=== PATIENT | male | born 1965 | race African-American/Black ===

== ENCOUNTER 2017-04-23 14:08 | Inpatient (IN) | payer OTHER ==
[2017-04-23] MEDS ORDERED: ASPIRIN 81 MG CHEW PO STA (14:21)
[2017-04-23] MEDS ORDERED: NITROGLYCERIN OINT 1 INCH/GM PACKET TOPICAL STA (14:21)
--- NOTE | 2017-04-23 14:35 | ED ---
General Adult HPI - General Chief complaint: Chest Pain Stated complaint: chest pain Time Seen by Provider: 04/23/17 14:15 Source: patient, EMS, RN notes reviewed Mode of arrival: ambulatory Limitations: no limitations - History of Present Illness Initial comments: This is a 51-year-old male with a past medical history significant for coronary artery disease and 2 stents. Patient was at [facility] for cocaine abuse. Patient states he started having chest pain is morning about 10:30 patient took 3 nitroglycerin and the pain went away per patient states later in the day he started having chest pain he got up to go to eat any passed out. Patient states that when EMS was called. Patient states he continues to have some chest pain. He is asked for pain medications. Patient denies any difficulty breathing first breath patient denies any diaphoresis. Patient denies any nausea patient patient denies any abdominal pain patient denies any vomiting or diarrhea recently. Patient denies any fever chills or cough. Patient denies headache patient denies numbness weakness. Patient denies lightheadedness dizziness or nursing about so. - Related Data Home Medications Medication Instructions Recorded Confirmed Acetaminophen Tab [Tylenol Tab] 650 mg PO Q4H PRN 04/23/17 04/23/17 Albuterol Sulfate [Ventolin Hfa] 2 puff INHALATION RT-QID PRN 04/23/17 04/23/17 Aspirin EC [Ecotrin Low Dose] 81 mg PO DAILY 04/23/17 04/23/17 Chlorpheniramine Maleate 4 mg PO Q4HR PRN 04/23/17 04/23/17 [Chlor-Trimeton] Ergocalciferol (Vitamin D2) 50,000 unit PO Q7D 04/23/17 04/23/17 [Vitamin D2] Gabapentin [Neurontin] 300 mg PO BID 04/23/17 04/23/17 Ibuprofen [Motrin] 600 mg PO Q6HR PRN 04/23/17 04/23/17 Isosorbide Mononitrate ER [Imdur] 30 mg PO DAILY 04/23/17 04/23/17 Lisinopril 40 mg PO DAILY 04/23/17 04/23/17 Metoprolol Tartrate [Lopressor] 50 mg PO BID 04/23/17 04/23/17 Multivitamins, Thera [Multivitamin 1 tab PO BID 04/23/17 04/23/17 (formulary)] NIFEdipine [NIFEdipine ER] 60 mg PO DAILY 04/23/17 04/23/17 Nitroglycerin Sl Tabs [Nitrostat] 0.4 mg SUBLINGUAL Q5M PRN 04/23/17 04/23/17 OXcarbazepine [Trileptal] 300 mg PO BID 04/23/17 04/23/17 QUEtiapine [SEROquel] 200 mg PO HS 04/23/17 04/23/17 QUEtiapine [SEROquel] 400 mg PO HS 04/23/17 04/23/17 Simvastatin [Zocor] 20 mg PO HS 04/23/17 04/23/17 Thiamine [Vitamin B-1] 100 mg PO DAILY 04/23/17 04/23/17 Trihexyphenidyl HCl 5 mg PO TID 04/23/17 04/23/17 busPIRone HCL 15 mg PO TID 04/23/17 04/23/17 traZODone HCL [TraZODone HCl] 50 - 150 mg PO HS 04/23/17 04/23/17 Allergies Allergy/AdvReac Type Severity Reaction Status Date / Time benztropine [From Cogentin] Allergy Unknown Verified 04/23/17 14:51 tomato Allergy Unknown Verified 04/23/17 14:51 ibuprofen [From Motrin] AdvReac Rash/Hives Verified 04/23/17 14:51 Review of Systems ROS Statement: Those systems with pertinent positive or pertinent negative responses have been documented in the HPI. ROS Other: All systems not noted in ROS Statement are negative. Past Medical History Past Medical History: Asthma, Hypertension, Myocardial Infarction ([place]) Additional Past Medical History / Comment(s): chronic back pain, cocaine use x 32 years (currently at [facility] for rehab.) History of Any Multi-Drug Resistant Organisms: None Reported Past Surgical History: Heart Catheterization With Stent Past Psychological History: No Psychological Hx Reported Smoking Status: Current every day smoker Past Alcohol Use History: None Reported Past Drug Use History: Cocaine - Past Family History Mother Family Medical History: Cancer, Diabetes Mellitus Additional Family Medical History / Comment(s): breast cancer, from cirrhosis of the liver Father Additional Family Medical History / Comment(s): from cirrhosis of the liver General Exam - General Exam Comments Initial Comments: GENERAL: Patient is well-developed and well-nourished. Patient is nontoxic and well- hydrated and is in no acute distress. ENT: Neck is soft and supple. No significant lymphadenopathy is noted. Oropharynx is clear. Moist mucous membranes. Neck has full range of motion without eliciting any pain. EYES: The sclera were anicteric and conjunctiva were pink and moist. Extraocular movements were intact and pupils were equal round and reactive to light. Eyelids were unremarkable. PULMONARY: Unlabored respirations. Good breath sounds bilaterally. No audible rales rhonchi or wheezing was noted. CARDIOVASCULAR: There is a regular rate and rhythm without any murmurs gallops or rubs. ABDOMEN: Soft and nontender with normal bowel sounds. No palpable organomegaly was noted. There is no palpable pulsatile mass. SKIN: Skin is clear with no lesions or rashes and otherwise unremarkable. NEUROLOGIC: Patient is alert and oriented x3. Cranial nerves II through XII are grossly intact. Motor and sensory are also intact. Normal speech, volume and content. Symmetrical smile. MUSCULOSKELETAL: Normal extremities with adequate strength and full range of motion. LYMPHATICS: No significant lymphadenopathy is noted PSYCHIATRIC: Normal psychiatric evaluation. Limitations: no limitations Course Vital Signs 04/23/17 04/23/17 04/23/17 14:14 14:26 15:40 Temperature 97.4 F L Pulse Rate 60 53 L Pulse Rate [ 54 L Applications Developer ] Respiratory 18 16 Rate Blood Pressure 111/69 115/76 O2 Sat by Pulse 98 95 Oximetry 04/23/17 04/23/17 16:49 18:02 Temperature 97.2 F L 97.0 F L Pulse Rate 51 L 58 L Pulse Rate [ Applications Developer ] Respiratory 18 18 Rate Blood Pressure 95/51 143/69 O2 Sat by Pulse 98 99 Oximetry Medical Decision Making - Medical Decision Making EKG shows sinus bradycardia 57 bpm NC interval is 200 QRS is 82 QT interval 420 QTC is 408 per patient's EKG shows no ST segment elevation or depression or T- wave abnormality is noted. Chest x-ray shows no acute abnormality. Dr. García admitted the patient. - Lab Data Result diagrams: 04/24/17 08:21 04/24/17 08:21 Lab Results 04/23/17 04/23/17 04/23/17 Range/Units 14:30 14:30 14:30 WBC 6.6 (3.8-10.6) k/uL RBC 4.84 (4.30-5.90) m/uL Hgb 14.8 (13.0-17.5) gm/dL Hct 44.0 (39.0-53.0) % MCV 90.9 (80.0-100.0) fL MCH 30.5 (25.0-35.0) pg MCHC 33.6 (31.0-37.0) g/dL RDW 14.2 (11.5-15.5) % Plt Count 227 (150-450) k/uL Neutrophils % 62 % Lymphocytes % 27 % Monocytes % 6 % Eosinophils % 3 % Basophils % 1 % Neutrophils # 4.1 (1.3-7.7) k/uL Lymphocytes # 1.8 (1.0-4.8) k/uL Monocytes # 0.4 (0-1.0) k/uL Eosinophils # 0.2 (0-0.7) k/uL Basophils # 0.0 (0-0.2) k/uL PT (9.0-12.0) sec INR (<1.1) APTT (22.0-30.0) sec Sodium 139 (137-145) mmol/L Potassium 5.4 H (3.5-5.1) mmol/L Chloride 104 (98-107) mmol/L Carbon Dioxide 27 (22-30) mmol/L Anion Gap 8 mmol/L BUN 16 (9-20) mg/dL Creatinine 0.80 (0.66-1.25) mg/dL Est GFR (MDRD) Af Amer >60 (>60 ml/min/1.73 sqM) Est GFR (MDRD) Non-Af >60 (>60 ml/min/1.73 sqM) Glucose 85 (74-99) mg/dL Calcium 9.7 (8.4-10.2) mg/dL Magnesium 2.0 (1.6-2.3) mg/dL Total Bilirubin 0.9 (0.2-1.3) mg/dL AST 33 (17-59) U/L ALT 26 (21-72) U/L Alkaline Phosphatase 58 (38-126) U/L Total Creatine Kinase 38 L (55-170) U/L CK-MB (CK-2) <0.2 (0.0-2.4) ng/mL CK-MB (CK-2) Rel Index Troponin I <0.012 (0.000-0.034) ng/mL Total Protein 6.7 (6.3-8.2) g/dL Albumin 3.9 (3.5-5.0) g/dL Triglycerides (<150) mg/dL Cholesterol (<200) mg/dL LDL Cholesterol, Calc (0-99) mg/dL HDL Cholesterol (40-60) mg/dL Urine Opiates Screen (NotDetected) Ur Oxycodone Screen (NotDetected) Urine Methadone Screen (NotDetected) Ur Propoxyphene Screen (NotDetected) Ur Barbiturates Screen (NotDetected) U Tricyclic Antidepress (NotDetected) Ur Phencyclidine Scrn (NotDetected) Ur Amphetamines Screen (NotDetected) U Methamphetamines Scrn (NotDetected) U Benzodiazepines Scrn (NotDetected) Urine Cocaine Screen (NotDetected) U Marijuana (THC) Screen (NotDetected) 04/23/17 04/23/17 04/23/17 Range/Units 14:30 17:51 20:15 WBC (3.8-10.6) k/uL RBC (4.30-5.90) m/uL Hgb (13.0-17.5) gm/dL Hct (39.0-53.0) % MCV (80.0-100.0) fL MCH (25.0-35.0) pg MCHC (31.0-37.0) g/dL RDW (11.5-15.5) % Plt Count (150-450) k/uL Neutrophils % % Lymphocytes % % Monocytes % % Eosinophils % % Basophils % % Neutrophils # (1.3-7.7) k/uL Lymphocytes # (1.0-4.8) k/uL Monocytes # (0-1.0) k/uL Eosinophils # (0-0.7) k/uL Basophils # (0-0.2) k/uL PT 11.8 (9.0-12.0) sec INR 1.2 (<1.1) APTT 25.3 (22.0-30.0) sec Sodium (137-145) mmol/L Potassium (3.5-5.1) mmol/L Chloride (98-107) mmol/L Carbon Dioxide (22-30) mmol/L Anion Gap mmol/L BUN (9-20) mg/dL Creatinine (0.66-1.25) mg/dL Est GFR (MDRD) Af Amer (>60 ml/min/1.73 sqM) Est GFR (MDRD) Non-Af (>60 ml/min/1.73 sqM) Glucose (74-99) mg/dL Calcium (8.4-10.2) mg/dL Magnesium (1.6-2.3) mg/dL Total Bilirubin (0.2-1.3) mg/dL AST (17-59) U/L ALT (21-72) U/L Alkaline Phosphatase (38-126) U/L Total Creatine Kinase (55-170) U/L CK-MB (CK-2) (0.0-2.4) ng/mL CK-MB (CK-2) Rel Index Troponin I <0.012 (0.000-0.034) ng/mL Total Protein (6.3-8.2) g/dL Albumin (3.5-5.0) g/dL Triglycerides (<150) mg/dL Cholesterol (<200) mg/dL LDL Cholesterol, Calc (0-99) mg/dL HDL Cholesterol (40-60) mg/dL Urine Opiates Screen Not Detected (NotDetected) Ur Oxycodone Screen Not Detected (NotDetected) Urine Methadone Screen Not Detected (NotDetected) Ur Propoxyphene Screen Not Detected (NotDetected) Ur Barbiturates Screen Not Detected (NotDetected) U Tricyclic Antidepress Detected H (NotDetected) Ur Phencyclidine Scrn Not Detected (NotDetected) Ur Amphetamines Screen Not Detected (NotDetected) U Methamphetamines Scrn Not Detected (NotDetected) U Benzodiazepines Scrn Not Detected (NotDetected) Urine Cocaine Screen Detected H (NotDetected) U Marijuana (THC) Screen Not Detected (NotDetected) 04/24/17 04/24/17 04/24/17 Range/Units 02:02 02:02 08:21 WBC 7.4 (3.8-10.6) k/uL RBC 4.77 (4.30-5.90) m/uL Hgb 14.2 (13.0-17.5) gm/dL Hct 43.8 (39.0-53.0) % MCV 91.8 (80.0-100.0) fL MCH 29.8 (25.0-35.0) pg MCHC 32.5 (31.0-37.0) g/dL RDW 14.0 (11.5-15.5) % Plt Count 210 (150-450) k/uL Neutrophils % 78 % Lymphocytes % 15 % Monocytes % 5 % Eosinophils % 1 % Basophils % 0 % Neutrophils # 5.8 (1.3-7.7) k/uL Lymphocytes # 1.1 (1.0-4.8) k/uL Monocytes # 0.3 (0-1.0) k/uL Eosinophils # 0.0 (0-0.7) k/uL Basophils # 0.0 (0-0.2) k/uL PT (9.0-12.0) sec INR (<1.1) APTT 34.3 H (22.0-30.0) sec Sodium (137-145) mmol/L Potassium (3.5-5.1) mmol/L Chloride (98-107) mmol/L Carbon Dioxide (22-30) mmol/L Anion Gap mmol/L BUN (9-20) mg/dL Creatinine (0.66-1.25) mg/dL Est GFR (MDRD) Af Amer (>60 ml/min/1.73 sqM) Est GFR (MDRD) Non-Af (>60 ml/min/1.73 sqM) Glucose (74-99) mg/dL Calcium (8.4-10.2) mg/dL Magnesium (1.6-2.3) mg/dL Total Bilirubin (0.2-1.3) mg/dL AST (17-59) U/L ALT (21-72) U/L Alkaline Phosphatase (38-126) U/L Total Creatine Kinase (55-170) U/L CK-MB (CK-2) (0.0-2.4) ng/mL CK-MB (CK-2) Rel Index Troponin I 0.018 (0.000-0.034) ng/mL Total Protein (6.3-8.2) g/dL Albumin (3.5-5.0) g/dL Triglycerides (<150) mg/dL Cholesterol (<200) mg/dL LDL Cholesterol, Calc (0-99) mg/dL HDL Cholesterol (40-60) mg/dL Urine Opiates Screen (NotDetected) Ur Oxycodone Screen (NotDetected) Urine Methadone Screen (NotDetected) Ur Propoxyphene Screen (NotDetected) Ur Barbiturates Screen (NotDetected) U Tricyclic Antidepress (NotDetected) Ur Phencyclidine Scrn (NotDetected) Ur Amphetamines Screen (NotDetected) U Methamphetamines Scrn (NotDetected) U Benzodiazepines Scrn (NotDetected) Urine Cocaine Screen (NotDetected) U Marijuana (THC) Screen (NotDetected) 04/24/17 04/24/17 Range/Units 08:21 08:21 WBC (3.8-10.6) k/uL RBC (4.30-5.90) m/uL Hgb (13.0-17.5) gm/dL Hct (39.0-53.0) % MCV (80.0-100.0) fL MCH (25.0-35.0) pg MCHC (31.0-37.0) g/dL RDW (11.5-15.5) % Plt Count (150-450) k/uL Neutrophils % % Lymphocytes % % Monocytes % % Eosinophils % % Basophils % % Neutrophils # (1.3-7.7) k/uL Lymphocytes # (1.0-4.8) k/uL Monocytes # (0-1.0) k/uL Eosinophils # (0-0.7) k/uL Basophils # (0-0.2) k/uL PT (9.0-12.0) sec INR (<1.1) APTT 55.6 H (22.0-30.0) sec Sodium 138 (137-145) mmol/L Potassium 4.7 (3.5-5.1) mmol/L Chloride 107 (98-107) mmol/L Carbon Dioxide 22 (22-30) mmol/L Anion Gap 9 mmol/L BUN 14 (9-20) mg/dL Creatinine 0.78 (0.66-1.25) mg/dL Est GFR (MDRD) Af Amer >60 (>60 ml/min/1.73 sqM) Est GFR (MDRD) Non-Af >60 (>60 ml/min/1.73 sqM) Glucose 117 H (74-99) mg/dL Calcium 9.5 (8.4-10.2) mg/dL Magnesium (1.6-2.3) mg/dL Total Bilirubin 0.9 (0.2-1.3) mg/dL AST 18 (17-59) U/L ALT 18 L (21-72) U/L Alkaline Phosphatase 55 (38-126) U/L Total Creatine Kinase (55-170) U/L CK-MB (CK-2) (0.0-2.4) ng/mL CK-MB (CK-2) Rel Index Troponin I (0.000-0.034) ng/mL Total Protein 6.4 (6.3-8.2) g/dL Albumin 3.6 (3.5-5.0) g/dL Triglycerides 37 (<150) mg/dL Cholesterol 153 (<200) mg/dL LDL Cholesterol, Calc 91 (0-99) mg/dL HDL Cholesterol 55 (40-60) mg/dL Urine Opiates Screen (NotDetected) Ur Oxycodone Screen (NotDetected) Urine Methadone Screen (NotDetected) Ur Propoxyphene Screen (NotDetected) Ur Barbiturates Screen (NotDetected) U Tricyclic Antidepress (NotDetected) Ur Phencyclidine Scrn (NotDetected) Ur Amphetamines Screen (NotDetected) U Methamphetamines Scrn (NotDetected) U Benzodiazepines Scrn (NotDetected) Urine Cocaine Screen (NotDetected) U Marijuana (THC) Screen (NotDetected) Disposition Clinical Impression: Unstable angina pectoris Disposition: ADMITTED IP TO THIS HOSP Condition: Fair Time of Disposition: 15:43
[2017-04-23 14:46] LABS: Basophils % (A) 1 %; CH 29.6; CHCM 32.7; Eosinophils # (A) 0.2 k/uL (0-0.7); Eosinophils % (A) 3 %; HDW 2.28; HGB 14.8 gm/dL (13.0-17.5); Luc # (Auto) 0.13; Luc % (Auto) 2; Lymphocytes # (A) 1.8 k/uL (1.0-4.8); Lymphocytes % (A) 27 %; MCH 30.5 pg (25.0-35.0); MCHC 33.6 g/dL (31.0-37.0); MCV 90.9 fL (80.0-100.0); Monocytes # (A) 0.4 k/uL (0-1.0); Monocytes % (A) 6 %; Neutrophils # (A) 4.1 k/uL (1.3-7.7); Neutrophils % (A) 62 %; RBC 4.84 m/uL (4.30-5.90); RDW 14.2 % (11.5-15.5); WBC 6.6 k/uL (3.8-10.6); WBC (Perox) 6.59
[2017-04-23 14:56] LABS: ALT 26 U/L (21-72); AST 33 U/L (17-59); Alkaline Phosphatase 58 U/L (38-126); Anion Gap 8 mmol/L; Blood Urea Nitrogen 16 mg/dL (9-20); Calcium 9.7 mg/dL (8.4-10.2); Carbon Dioxide 27 mmol/L (22-30); Chloride 104 mmol/L (98-107); Glucose 85 mg/dL (74-99); Non-African American GFR(MDRD) >60 (>60 ml/min/1.73 sqM); Sodium 139 mmol/L (137-145); Total Bilirubin 0.9 mg/dL (0.2-1.3); Total Protein 6.7 g/dL (6.3-8.2)
[2017-04-23 14:58] LABS: INR 1.2 (<1.1); Partial Thromboplastin Time 25.3 sec (22.0-30.0); Potassium 5.4 mmol/L (3.5-5.1); Prothrombin Time 11.8 sec (9.0-12.0)
[2017-04-23 15:12] LABS: Creatine Kinase 38 U/L (55-170)
[2017-04-23 15:23] LABS: Creatine Kinase MB <0.2 ng/mL (0.0-2.4); Troponin I <0.012 ng/mL (0.000-0.034)
--- NOTE | 2017-04-23 15:25 | XR ---
EXAMINATION TYPE: XR chest 2V DATE OF EXAM: 04/23/2017 COMPARISON: None HISTORY: 51-year-old male with chest pain TECHNIQUE: PA and lateral views FINDINGS: The cardiomediastinal silhouette, aorta, and pulmonary vasculature are within normal limits. Mild dif fuse interstitial prominence as a chronic appearance. Couple were obtained from metallic BBs are pres ent projecting at the mid upper chest and left axilla. No consolidation or pleural effusion. IMPRESSION: Chronic changes without acute cardiopulmonary process.
[2017-04-23] MEDS ORDERED: SODIUM CHLORIDE 0.9% 1,000 ML IV STA (15:55)
[2017-04-23] MEDS ORDERED: IBUPROFEN 600 MG TAB PO PRN (15:57)
[2017-04-23] MEDS ORDERED: diphenhydrAMINE 25 MG CAP PO PRN (15:57)
[2017-04-23] MEDS ORDERED: ALBUTEROL NEBULIZED 2.5 MG/3 ML INHALATION PRN (15:57)
[2017-04-23] MEDS ORDERED: ERGOCALCIFEROL 50,000 UNIT CAP PO SCH (16:00)
[2017-04-23] MEDS ORDERED: HEPARIN SODIUM,PORCINE 5,000 UNIT/ML 1 ML VIAL IV ONE (17:53)
[2017-04-23] MEDS ORDERED: NITROGLYCERIN OINT 1 INCH/GM PACKET TOPICAL SCH (18:00)
[2017-04-23] MEDS: HEPARIN SODIUM,PORCINE/D5W PMX 25,000 UNIT in DEXTROSE/WATER 1 500ML.BAG IV SCH ×2 (18:06→19:15)
--- NOTE | 2017-04-23 18:37 | P.HPIM ---
History of Present Illness H&P Date: 04/23/17 This is a 50-year-old gentleman with previous history of CAD and polysubstance use was admitted to [facility] a day prior to the day of admission was brought into the hospital with complaints of chest pain Patient states that he has chest pain midsternal location radiating to the back associated with deep breathing denies having any alleviating or exacerbating factors Initial EKG when compared to a previous EKG does show subtle changes in 2-[address] depressions Cardiac enzyme initially was negative Patient states that his pain is constant Patient was noted to have cocaine in his drug screen Smokes about a pack of cigarettes daily Denies having any recent illnesses Denies having headaches nausea vomiting abdominal pain diarrhea urinary urgency or frequency Patient was also reported to have a episode of syncope apparently lost consciousness for about a minute thereafter regain consciousness without any confusion It was witnessed by his roommate who did not stay there is any seizure-like activity according to the patient Review of Systems All systems: negative (Noted in HPI) Past Medical History Past Medical History: Asthma, Hypertension, Myocardial Infarction ([place]) Additional Past Medical History / Comment(s): chronic back pain, cocaine use x 32 years (currently at [place] [facility] for rehab.) History of Any Multi-Drug Resistant Organisms: None Reported Past Surgical History: Heart Catheterization With Stent Past Psychological History: No Psychological Hx Reported Smoking Status: Current every day smoker Past Alcohol Use History: None Reported Past Drug Use History: Cocaine Medications and Allergies Home Medications Medication Instructions Recorded Confirmed Type Acetaminophen Tab [Tylenol Tab] 650 mg PO Q4H PRN 04/23/17 04/23/17 History Albuterol Sulfate [Ventolin Hfa] 2 puff INHALATION RT-QID PRN 04/23/17 04/23/17 History Aspirin EC [Ecotrin Low Dose] 81 mg PO DAILY 04/23/17 04/23/17 History Chlorpheniramine Maleate 4 mg PO Q4HR PRN 04/23/17 04/23/17 History [Chlor-Trimeton] Ergocalciferol (Vitamin D2) 50,000 unit PO Q7D 04/23/17 04/23/17 History [Vitamin D2] Gabapentin [Neurontin] 300 mg PO BID 04/23/17 04/23/17 History Ibuprofen [Motrin] 600 mg PO Q6HR PRN 04/23/17 04/23/17 History Isosorbide Mononitrate ER [Imdur] 30 mg PO DAILY 04/23/17 04/23/17 History Lisinopril 40 mg PO DAILY 04/23/17 04/23/17 History Metoprolol Tartrate [Lopressor] 50 mg PO BID 04/23/17 04/23/17 History Multivitamins, Thera [Multivitamin 1 tab PO BID 04/23/17 04/23/17 History (formulary)] NIFEdipine [NIFEdipine ER] 60 mg PO DAILY 04/23/17 04/23/17 History Nitroglycerin Sl Tabs [Nitrostat] 0.4 mg SUBLINGUAL Q5M PRN 04/23/17 04/23/17 History OXcarbazepine [Trileptal] 300 mg PO BID 04/23/17 04/23/17 History QUEtiapine [SEROquel] 200 mg PO HS 04/23/17 04/23/17 History QUEtiapine [SEROquel] 400 mg PO HS 04/23/17 04/23/17 History Simvastatin [Zocor] 20 mg PO HS 04/23/17 04/23/17 History Thiamine [Vitamin B-1] 100 mg PO DAILY 04/23/17 04/23/17 History Trihexyphenidyl HCl 5 mg PO TID 04/23/17 04/23/17 History busPIRone HCL 15 mg PO TID 04/23/17 04/23/17 History traZODone HCL [TraZODone HCl] 50 - 150 mg PO HS 04/23/17 04/23/17 History Allergies Allergy/AdvReac Type Severity Reaction Status Date / Time benztropine [From Cogentin] Allergy Unknown Verified 04/23/17 14:51 tomato Allergy Unknown Verified 04/23/17 14:51 ibuprofen [From Motrin] AdvReac Rash/Hives Verified 04/23/17 14:51 Physical Exam Vitals: Vital Signs Temp Pulse Pulse Resp BP Pulse Ox 04/23/17 18:02 97.0 F L 58 L 18 143/69 99 04/23/17 16:49 97.2 F L 51 L 18 95/51 98 04/23/17 15:40 53 L 16 115/76 95 04/23/17 14:26 54 L 04/23/17 14:14 97.4 F L 60 18 111/69 98 Intake and Output 04/23/17 04/23/17 04/23/17 06:59 14:59 22:59 Other: Weight 100.698 kg Patient Weight 04/24/17 06:59 Weight 100.698 kg Physical exam Gen. appearance oriented 3 in no distress Neck is supple no JVD Lungs diminished breath sounds no significant wheezing or rhonchi appreciated Heart S1-S2 heard regular rate and rhythm no murmurs appreciated Abdomen is soft nontender no organomegaly bowel sounds are intact Neurologically cranial nerves II-12 grossly intact no focal motor or sensory deficits noted Skin no abnormalities appreciated Results CBC & Chem 7: 04/23/17 14:30 04/23/17 14:30 Labs: Abnormal Lab Results - Last 24 Hours (Table) 04/23/17 04/23/17 04/23/17 Range/Units 14:30 14:30 17:51 Potassium 5.4 H (3.5-5.1) mmol/L Total Creatine Kinase 38 L (55-170) U/L U Tricyclic Antidepress Detected H (NotDetected) Urine Cocaine Screen Detected H (NotDetected) Assessment and Plan Plan: #1 syncope likely vasovagal #2 atypical chest pain likely pleuritic in nature #3 history of CAD #4 polysubstance use #5 hypertension. #6 dyslipidemia #7 ongoing tobacco use Plan We'll start the patient on Solumedrol 40 mg IV twice a day for pleurisy We'll obtain echocardiogram will have cardiology evaluate the patient as well Breathing treatments to be initiated Serial enzymes Appears atypical however subtle EKG changes are noted patient has done cocaine recently hence we'll my the patient overnight
[2017-04-23 18:49] VITALS: BMI 32.8
[2017-04-23] MEDS ORDERED: HEPARIN SODIUM,PORCINE 5,000 UNIT/ML 1 ML VIAL IV PRN (19:14)
[2017-04-23] MEDS ORDERED: IPRATROPIUM-ALBUTEROL 3 ML NEB INHALATION SCH (20:00)
[2017-04-23] MEDS: GABAPENTIN 300 MG CAP PO SCH (20:19)
[2017-04-23] MEDS: busPIRone HCl 5 MG TAB PO SCH ×2 (20:19→21:26)
[2017-04-23] MEDS: SODIUM CHLORIDE 0.9% 1,000 ML IV SCH (20:20)
[2017-04-23] MEDS: methylPREDNISolone SOD SUCCI 40 MG/ML 1 ML VIAL IV SCH (20:20)
[2017-04-23] MEDS ORDERED: ACETAMINOPHEN TAB 325 MG TAB PO PRN (20:33)
[2017-04-23] MEDS ORDERED: QUEtiapine 200 MG TAB PO SCH (21:00)
[2017-04-23] MEDS ORDERED: traZODone HCL 50 MG TAB PO SCH (21:00)
[2017-04-23] MEDS ORDERED: QUEtiapine 400 MG TAB PO SCH (21:00)
[2017-04-23] MEDS ORDERED: IPRATROPIUM-ALBUTEROL 3 ML NEB INHALATION PRN (21:31)
[2017-04-23] MEDS: OXcarbazepine 300 MG TAB PO SCH (22:40)
[2017-04-23] MEDS: METOPROLOL TARTRATE 50 MG TAB PO SCH (22:40)
[2017-04-24 08:40] LABS: Basophils % (A) 0 %; CH 29.7; CHCM 32.5; Eosinophils % (A) 1 %; HCT 43.8 % (39.0-53.0); HDW 2.23; HGB 14.2 gm/dL (13.0-17.5); Luc # (Auto) 0.09; Luc % (Auto) 1; Lymphocytes # (A) 1.1 k/uL (1.0-4.8); Lymphocytes % (A) 15 %; MCH 29.8 pg (25.0-35.0); MCHC 32.5 g/dL (31.0-37.0); MCV 91.8 fL (80.0-100.0); Mean Platelet Volume 7.9; Monocytes # (A) 0.3 k/uL (0-1.0); Monocytes % (A) 5 %; Neutrophils # (A) 5.8 k/uL (1.3-7.7); Neutrophils % (A) 78 %; RBC 4.77 m/uL (4.30-5.90); WBC 7.4 k/uL (3.8-10.6); WBC (Perox) 7.03
[2017-04-24] MEDS ORDERED: NON-FORMULARY DRUG (Aspirin Ec 81 MG) PO SCH (09:00)
[2017-04-24] MEDS ORDERED: THIAMINE 100 MG/ML 2 ML VIAL IM STA (09:17)
[2017-04-24] MEDS ORDERED: LORazepam 2 MG/ML SYRINGE IV PRN ×5 (09:17→20:55)
[2017-04-24] MEDS ORDERED: QUEtiapine 25 MG TAB PO STA (09:18)
[2017-04-24 09:21] LABS: Anion Gap 9 mmol/L; Calcium 9.5 mg/dL (8.4-10.2); Carbon Dioxide 22 mmol/L (22-30); Chloride 107 mmol/L (98-107); Cholesterol 153 mg/dL (<200); Glucose 117 mg/dL (74-99); HDL Cholesterol 55 mg/dL (40-60); Non-African American GFR(MDRD) >60 (>60 ml/min/1.73 sqM); Sodium 138 mmol/L (137-145); Total Bilirubin 0.9 mg/dL (0.2-1.3); Total Protein 6.4 g/dL (6.3-8.2); Triglycerides 37 mg/dL (<150)
[2017-04-24 09:29] LABS: Blood Urea Nitrogen 14 mg/dL (9-20); Potassium 4.7 mmol/L (3.5-5.1)
[2017-04-24 09:30] LABS: ALT 18 U/L (21-72); AST 18 U/L (17-59); Alkaline Phosphatase 55 U/L (38-126)
[2017-04-24] MEDS: ATORVASTATIN 40 MG TAB PO SCH (10:01)
[2017-04-24] MEDS: ASPIRIN 325 MG TAB PO SCH (10:01)
[2017-04-24] MEDS ORDERED: NALOXONE 0.4 MG/ML 10 ML VIAL IVP PRN (10:40)
[2017-04-24] MEDS: OXcarbazepine 300 MG TAB PO SCH ×2 (10:40→21:27)
[2017-04-24] MEDS ORDERED: NALOXONE 0.4 MG/ML 1 ML VIAL IV PRN (10:41)
[2017-04-24] MEDS ORDERED: NALOXONE 0.4 MG/ML 1 ML VIAL ONE (10:42)
[2017-04-24 10:45] LABS: Glucose,Whole Blood 118 mg/dL (75-99)
[2017-04-24] MEDS: busPIRone HCl 5 MG TAB PO SCH ×3 (10:50→21:28)
[2017-04-24] MEDS: METOPROLOL TARTRATE 50 MG TAB PO SCH ×2 (10:51→21:26)
[2017-04-24] MEDS: LISINOPRIL 20 MG TAB PO SCH (10:51)
[2017-04-24] MEDS: methylPREDNISolone SOD SUCCI 40 MG/ML 1 ML VIAL IV SCH (10:51)
[2017-04-24] MEDS: GABAPENTIN 300 MG CAP PO SCH ×2 (10:51→21:26)
[2017-04-24] MEDS: ISOSORBIDE MONONITRATE ER 30 MG TAB.ER.24H PO SCH (10:51)
--- NOTE | 2017-04-24 11:18 | P.CNPUL ---
History of Present Illness Consult date: 04/24/17 Requesting physician: Roly García Reason for consult: other (Critical care management) Chief complaint: Chest pain History of present illness: This is a 51-year-old gentleman with a known history of chronic bronchial asthma , anxiety/depression, hypertension, coronary artery disease with previous stent placements 2, chronic and ongoing tobacco dependence, 30+ years of cocaine abuse. He was recently admitted to [facility] facility when he developed chest pain yesterday. He did utilize nitroglycerin and the pain subsided for a while and then recurred. He was transferred here for the same. Admitted to the observation unit. His EKG did not reveal any acute ST or T- wave abnormalities. His troponins are negative 2. Mikael within normal limits. Electrolytes, renal function within normal limits. His urine drug screen was positive for tricyclics and cocaine. The patient had denied any history of alcohol abuse however he was placed on the CIWA protocol. Initially his number was 8/9 however earlier today he was at 31 and we are consulted for the same. The patient was restless and hallucinating and walking in and out of other patient rooms and he was given 2 mg of Ativan IV push. Upon evaluation by Dr. Banda the patient is somewhat obtunded. Most likely secondary to the Ativan. His blood glucose was 118. We gave 0.4 mg of Narcan without any immediate response. He is maintaining good O2 saturations in the mid 90s on room air. He is hemodynamically stable. Chest x-ray revealed chronic changes in no acute cardiopulmonary process. Metallic BBs were noted in the mid upper chest and left axilla region. Review of Systems ROS unobtainable: due to mental status Past Medical History Past Medical History: Asthma, Hypertension, Myocardial Infarction ([place]) Additional Past Medical History / Comment(s): chronic back pain, cocaine use x 32 years (currently at [facility] for rehab.) Last Myocardial Infarction Date:: 2013 History of Any Multi-Drug Resistant Organisms: None Reported Past Surgical History: Heart Catheterization With Stent Past Anesthesia/Blood Transfusion Reactions: No Reported Reaction Date of Last Stent Placement:: 2009 Past Psychological History: No Psychological Hx Reported Smoking Status: Current every day smoker Past Alcohol Use History: None Reported Past Drug Use History: Cocaine - Past Family History Mother Family Medical History: Cancer, Diabetes Mellitus Additional Family Medical History / Comment(s): breast cancer, from cirrhosis of the liver Father Additional Family Medical History / Comment(s): from cirrhosis of the liver Medications and Allergies Home Medications Medication Instructions Recorded Confirmed Type Acetaminophen Tab [Tylenol Tab] 650 mg PO Q4H PRN 04/23/17 04/23/17 History Albuterol Sulfate [Ventolin Hfa] 2 puff INHALATION RT-QID PRN 04/23/17 04/23/17 History Aspirin EC [Ecotrin Low Dose] 81 mg PO DAILY 04/23/17 04/23/17 History Chlorpheniramine Maleate 4 mg PO Q4HR PRN 04/23/17 04/23/17 History [Chlor-Trimeton] Ergocalciferol (Vitamin D2) 50,000 unit PO Q7D 04/23/17 04/23/17 History [Vitamin D2] Gabapentin [Neurontin] 300 mg PO BID 04/23/17 04/23/17 History Ibuprofen [Motrin] 600 mg PO Q6HR PRN 04/23/17 04/23/17 History Isosorbide Mononitrate ER [Imdur] 30 mg PO DAILY 04/23/17 04/23/17 History Lisinopril 40 mg PO DAILY 04/23/17 04/23/17 History Metoprolol Tartrate [Lopressor] 50 mg PO BID 04/23/17 04/23/17 History Multivitamins, Thera [Multivitamin 1 tab PO BID 04/23/17 04/23/17 History (formulary)] NIFEdipine [NIFEdipine ER] 60 mg PO DAILY 04/23/17 04/23/17 History Nitroglycerin Sl Tabs [Nitrostat] 0.4 mg SUBLINGUAL Q5M PRN 04/23/17 04/23/17 History OXcarbazepine [Trileptal] 300 mg PO BID 04/23/17 04/23/17 History QUEtiapine [SEROquel] 200 mg PO HS 04/23/17 04/23/17 History QUEtiapine [SEROquel] 400 mg PO HS 04/23/17 04/23/17 History Simvastatin [Zocor] 20 mg PO HS 04/23/17 04/23/17 History Thiamine [Vitamin B-1] 100 mg PO DAILY 04/23/17 04/23/17 History Trihexyphenidyl HCl 5 mg PO TID 04/23/17 04/23/17 History busPIRone HCL 15 mg PO TID 04/23/17 04/23/17 History traZODone HCL [TraZODone HCl] 50 - 150 mg PO HS 04/23/17 04/23/17 History Allergies Allergy/AdvReac Type Severity Reaction Status Date / Time benztropine [From Cogentin] Allergy Unknown Verified 04/23/17 14:51 tomato Allergy Unknown Verified 04/23/17 14:51 ibuprofen [From Motrin] AdvReac Rash/Hives Verified 04/23/17 14:51 Physical Exam Vitals: Vital Signs Temp Pulse Pulse Pulse Resp BP BP 04/24/17 08:00 98.4 F 75 18 129/85 04/24/17 03:26 20 04/24/17 03:25 98.2 F 67 20 122/67 04/23/17 23:29 74 18 121/65 04/23/17 23:18 14 04/23/17 20:00 14 04/23/17 18:33 98.0 F 70 14 128/87 04/23/17 18:02 97.0 F L 58 L 18 143/69 04/23/17 16:49 97.2 F L 51 L 18 95/51 04/23/17 15:40 53 L 16 115/76 04/23/17 14:26 54 L 04/23/17 14:14 97.4 F L 60 18 111/69 Pulse Ox 04/24/17 08:00 95 04/24/17 03:26 04/24/17 03:25 96 04/23/17 23:29 94 L 04/23/17 23:18 04/23/17 20:00 04/23/17 18:33 100 04/23/17 18:02 99 04/23/17 16:49 98 04/23/17 15:40 95 04/23/17 14:26 04/23/17 14:14 98 Intake and Output 04/23/17 04/24/17 04/24/17 22:59 06:59 14:59 Intake Total 27.784 581.333 Balance 27.784 581.333 Intake: IV 280 Heparin Sodium,Porcine/ 140 D5w Pmx 25,000 unit In Dextrose/Water 1 500ml. bag @ 12 UNITS/KG/HR 24. 16 mls/hr IV .[id number] MICHELLE Rx#:[id number] Sodium Chloride 0.9% 1, 140 000 ml @ 20 mls/hr IV . Q24H MICHELLE Rx#:[id number] Intake, IV Titration 27.784 151.333 Amount Heparin Sodium,Porcine/ 27.784 151.333 D5w Pmx 25,000 unit In Dextrose/Water 1 500ml. bag @ 12 UNITS/KG/HR 24. 16 mls/hr IV .[id number] MICHELLE Rx#:[id number] Oral 150 Other: Voiding Method Toilet Toilet Toilet # Voids 3 1 Weight 101.1 kg GENERAL EXAM: Sedated. HEAD: Normocephalic. EYES: Sluggish reaction of pupils, equal size. NOSE: Clear with pink turbinates. THROAT: No erythema or exudates. NECK: No masses, no JVD. CHEST: No chest wall deformity. LUNGS: Equal air entry with no crackles, wheeze, rhonchi or dullness. CVS: S1 and S2 normal with no audible murmurs, regular rhythm. ABDOMEN: No hepatosplenomegaly, normal bowel sounds, no guarding or rigidity. Extremities: There is no significant peripheral edema. No clubbing, no cyanosis. Peripheral pulses are intact. Results - Laboratory Findings CBC and BMP: 04/24/17 08:21 04/24/17 08:21 PT/INR, D-dimer PT 11.8 sec (9.0-12.0) 04/23/17 14:30 INR 1.2 (<1.1) 04/23/17 14:30 Abnormal lab findings: Abnormal Labs 04/23/17 04/23/17 04/23/17 14:30 14:30 17:51 APTT Potassium 5.4 H Glucose POC Glucose (mg/dL) ALT Total Creatine Kinase 38 L U Tricyclic Antidepress Detected H Urine Cocaine Screen Detected H 04/24/17 04/24/17 04/24/17 02:02 08:21 08:21 APTT 34.3 H 55.6 H Potassium Glucose 117 H POC Glucose (mg/dL) ALT 18 L Total Creatine Kinase U Tricyclic Antidepress Urine Cocaine Screen 04/24/17 10:43 APTT Potassium Glucose POC Glucose (mg/dL) 118 H ALT Total Creatine Kinase U Tricyclic Antidepress Urine Cocaine Screen - Diagnostic Findings Chest x-ray: image reviewed Assessment and Plan Plan: Impression: #1 Altered mental status secondary to suspected withdrawal from cocaine and the requirement of IV sedation. #2 Cocaine abuse for greater than 30 years. Was recently admitted to [facility]. #3 Chest pain without evidence of acute coronary syndrome suspect secondary to cocaine use, in a patient with a known history of coronary artery disease and previous stent placements. #4 Chronic and ongoing tobacco dependence. #5 Chronic obstructive pulmonary disease. #6 Hypertension. #7 Depression history of. Plan: The patient was seen and evaluated by Dr. Banda. His chest x-ray and labs were reviewed. The patient is quite obtunded currently possibly secondary to 2 mg IV push Ativan. We will transfer the patient to the intensive care unit for closer monitoring. He is currently protecting his airway. He is maintaining good O2 saturations in the 90s on room air. Cautious use of sedation. Continue current medications. If he does not improve mentally we will obtain a computed tomography scan of the head. We'll continue to follow and make further recommendations based on his clinical status. Time with Patient: Greater than 30
[2017-04-24] MEDS ORDERED: HALOPERIDOL LACTATE 5 MG/ML 1 ML VIAL IM PRN (12:24)
[2017-04-24] MEDS: SODIUM CHLORIDE 0.9% 1,000 ML IV SCH ×2 (13:00→21:27)
[2017-04-24 13:35] LABS: Appearance,Urine Clear (Clear); Bilirubin,Urine Negative (Negative); Glucose,Urine (UA) Negative (Negative); Ketones,Urine Negative (Negative); Leukocyte Esterase,Urine Negative (Negative); Nitrite,Urine Negative (Negative); PH, Urine 5.5 (5.0-8.0); Protein,Urine Negative (Negative); Specific Gravity,Urine 1.013 (1.001-1.035); UA Billing (MACRO vs. MICRO) CHEM; Urobilinogen,Urine <2.0 mg/dL (<2.0)
--- NOTE | 2017-04-24 15:08 | P.PN ---
Subjective This is a 50-year-old gentleman with previous history of CAD and polysubstance use was admitted to [facility] a day prior to the day of admission was brought into the hospital with complaints of chest pain Patient states that he has chest pain midsternal location radiating to the back associated with deep breathing denies having any alleviating or exacerbating factors Initial EKG when compared to a previous EKG does show subtle changes in 2-[address] depressions Cardiac enzyme initially was negative Patient states that his pain is constant Patient was noted to have cocaine in his drug screen Smokes about a pack of cigarettes daily Denies having any recent illnesses Denies having headaches nausea vomiting abdominal pain diarrhea urinary urgency or frequency Patient was also reported to have a episode of syncope apparently lost consciousness for about a minute thereafter regain consciousness without any confusion It was witnessed by his roommate who did not stay there is any seizure-like activity according to the patient 04/24/17 pt was apparently was more confused was seen in the ICU does not respond to commands CIWA score of 32 was reported and hence was triaged to the ICU Objective - Vital Signs Vital signs: Vital Signs Temp 97.9 F 04/24/17 12:00 Pulse 74 04/24/17 14:00 Resp 13 04/24/17 14:00 BP 153/83 04/24/17 14:00 Pulse Ox 95 04/24/17 14:00 Intake & Output 04/23/17 04/24/17 04/24/17 18:59 06:59 18:59 Intake Total 609.117 60 Output Total 735 Balance 609.117 -675 Weight 100.698 kg 101.1 kg Intake: IV 280 Heparin Sodium,Porcine/ 140 D5w Pmx 25,000 unit In Dextrose/Water 1 500ml. bag @ 12 UNITS/KG/HR 24. 16 mls/hr IV .[id number] MICHELLE Rx#:[id number] Sodium Chloride 0.9% 1, 140 000 ml @ 20 mls/hr IV . Q24H MICHELLE Rx#:[id number] Intake, IV Titration 179.117 60 Amount Heparin Sodium,Porcine/ 179.117 D5w Pmx 25,000 unit In Dextrose/Water 1 500ml. bag @ 12 UNITS/KG/HR 24. 16 mls/hr IV .[id number] MICHELLE Rx#:[id number] Sodium Chloride 0.9% 1, 60 000 ml @ 20 mls/hr IV . Q24H MICHELLE Rx#:[id number] Oral 150 Output: Urine 735 Other: Voiding Method Toilet Indwelling Catheter # Voids 3 1 - Exam Physical exam lethargic Neck is supple no JVD Lungs good air entry clear to auscultation no rhonchi or wheezing Heart S1-S2 heard regular rate and rhythm no murmurs appreciated Abdomen is soft nontender no organomegaly bowel sounds are intact Neurologically deferred Skin no abnormalities appreciated - Labs CBC & Chem 7: 04/24/17 08:21 04/24/17 08:21 Labs: Abnormal Lab Results - Last 24 Hours (Table) 04/23/17 04/23/17 04/24/17 Range/Units 14:30 17:51 02:02 APTT 34.3 H (22.0-30.0) sec Glucose (74-99) mg/dL POC Glucose (mg/dL) (75-99) mg/dL ALT (21-72) U/L Total Creatine Kinase 38 L (55-170) U/L U Tricyclic Antidepress Detected H (NotDetected) Urine Cocaine Screen Detected H (NotDetected) 04/24/17 04/24/17 04/24/17 Range/Units 08:21 08:21 10:43 APTT 55.6 H (22.0-30.0) sec Glucose 117 H (74-99) mg/dL POC Glucose (mg/dL) 118 H (75-99) mg/dL ALT 18 L (21-72) U/L Total Creatine Kinase (55-170) U/L U Tricyclic Antidepress (NotDetected) Urine Cocaine Screen (NotDetected) Assessment and Plan Plan: #1 syncope likely vasovagal #2 atypical chest pain likely pleuritic in nature #3 history of CAD #4 polysubstance use #5 hypertension. #6 dyslipidemia #7 ongoing tobacco use #8 acute toxic encephalopathy Plan Patient is scheduled for a stress is Continue ICU monitoring We'll discontinue Seroquel that was recently started DC steroids Continue close monitoring if patient gets agitated will use Haldol IM 5 mg every 6 hours when necessary DVT prophylaxis
[2017-04-24] MEDS: HEPARIN SODIUM,PORCINE 5,000 UNIT/ML 1 ML VIAL SQ SCH (16:25)
[2017-04-24] MEDS ORDERED: THIAMINE 100 MG TAB PO SCH (17:00)
[2017-04-24] MEDS ORDERED: ZOLPIDEM 5 MG TAB PO SCH (21:00)
[2017-04-25] MEDS: HEPARIN SODIUM,PORCINE 5,000 UNIT/ML 1 ML VIAL SQ SCH ×3 (04:07→16:02)
[2017-04-25 05:59] LABS: Basophils % (A) 0 %; CH 29.1; CHCM 31.8; Eosinophils # (A) 0.1 k/uL (0-0.7); Eosinophils % (A) 1 %; HCT 45.5 % (39.0-53.0); HDW 2.23; HGB 14.9 gm/dL (13.0-17.5); Luc # (Auto) 0.17; Luc % (Auto) 2; Lymphocytes # (A) 1.7 k/uL (1.0-4.8); Lymphocytes % (A) 17 %; MCH 30.2 pg (25.0-35.0); MCHC 32.8 g/dL (31.0-37.0); MCV 91.9 fL (80.0-100.0); Mean Platelet Volume 7.9; Monocytes # (A) 0.6 k/uL (0-1.0); Monocytes % (A) 6 %; Neutrophils # (A) 7.4 k/uL (1.3-7.7); Neutrophils % (A) 73 %; RBC 4.95 m/uL (4.30-5.90); RDW 13.9 % (11.5-15.5); WBC 10.1 k/uL (3.8-10.6); WBC (Perox) 10.48
[2017-04-25] MEDS ORDERED: DOBUTamine DRIP for NUC MED 500 MG in DEXTROSE/WATER 1 250ML.BAG IV ONE (06:00)
[2017-04-25 06:09] LABS: Anion Gap 7 mmol/L; Blood Urea Nitrogen 15 mg/dL (9-20); Calcium 9.5 mg/dL (8.4-10.2); Carbon Dioxide 27 mmol/L (22-30); Chloride 106 mmol/L (98-107); Glucose 83 mg/dL (74-99); Non-African American GFR(MDRD) >60 (>60 ml/min/1.73 sqM); Potassium 4.5 mmol/L (3.5-5.1); Sodium 140 mmol/L (137-145)
[2017-04-25] MEDS: NICOTINE 21MG/24HR PATCH TRANSDERM SCH ×2 (07:16→09:00)
[2017-04-25 08:12] LABS: Glucose,Whole Blood 89 mg/dL (75-99)
[2017-04-25] MEDS: ASPIRIN 325 MG TAB PO SCH (08:59)
[2017-04-25] MEDS: LISINOPRIL 20 MG TAB PO SCH (08:59)
[2017-04-25] MEDS: ATORVASTATIN 40 MG TAB PO SCH (08:59)
[2017-04-25] MEDS: GABAPENTIN 300 MG CAP PO SCH ×2 (08:59→22:04)
[2017-04-25] MEDS: ISOSORBIDE MONONITRATE ER 30 MG TAB.ER.24H PO SCH (09:00)
[2017-04-25] MEDS: SODIUM CHLORIDE 0.9% 1,000 ML IV SCH (09:01)
[2017-04-25] MEDS: OXcarbazepine 300 MG TAB PO SCH ×2 (09:01→22:04)
[2017-04-25] MEDS: METOPROLOL TARTRATE 50 MG TAB PO SCH ×3 (09:01→23:21)
--- NOTE | 2017-04-25 10:20 | P.PN ---
Subjective This is a 51-year-old gentleman with a known history of chronic bronchial asthma , anxiety/depression, hypertension, coronary artery disease with previous stent placements 2, chronic and ongoing tobacco dependence, 30+ years of cocaine abuse. He was recently admitted to [facility] when he developed chest pain yesterday. He did utilize nitroglycerin and the pain subsided for a while and then recurred. He was transferred here for the same. Admitted to the observation unit. His EKG did not reveal any acute ST or T- wave abnormalities. His troponins are negative 2. Mikael within normal limits. Electrolytes, renal function within normal limits. His urine drug screen was positive for tricyclics and cocaine. The patient had denied any history of alcohol abuse however he was placed on the CIWA protocol. Initially his number was 8/9 however earlier today he was at 31 and we are consulted for the same. The patient was restless and hallucinating and walking in and out of other patient rooms and he was given 2 mg of Ativan IV push. Upon evaluation by Dr. Banda the patient is somewhat obtunded. Most likely secondary to the Ativan. His blood glucose was 118. We gave 0.4 mg of Narcan without any immediate response. He is maintaining good O2 saturations in the mid 90s on room air. He is hemodynamically stable. Chest x-ray revealed chronic changes in no acute cardiopulmonary process. Metallic BBs were noted in the mid upper chest and left axilla region. The patient is seen again today 04/25/2017 in follow-up in the intensive care unit. He was quite sedated and obtunded yesterday when Dr. Banda 90 S. patient in the observation unit secondary to Ativan. He did again get restless and agitated and required Haldol and repeated Ativan. The last dose was approximately 1 AM this morning. Today on evaluation he is still quite sedate but arousable and moving all fours. He responds to verbal stimulation. He has been maintaining good O2 saturations in the upper 90s on room air. He's been hemodynamically stable. Afebrile. No leukocytosis. Objective - Vital Signs Vital signs: Vital Signs Temp 97 F L 04/25/17 08:00 Pulse 63 04/25/17 08:00 Resp 10 L 04/25/17 08:00 BP 163/89 04/25/17 08:00 Pulse Ox 96 04/25/17 08:00 Intake & Output 04/24/17 04/25/17 04/25/17 18:59 06:59 18:59 Intake Total 510 975 75 Output Total 1480 616 100 Balance -970 359 -25 Weight 99.6 kg Intake: IV 900 75 Sodium Chloride 0.9% 1, 900 75 000 ml @ 75 mls/hr IV . [id number] MICHELLE Rx#:[id number] Intake, IV Titration 250 75 Amount Sodium Chloride 0.9% 1, 250 75 000 ml @ 75 mls/hr IV . [id number] MICHELLE Rx#:[id number] Oral 260 Output: Urine 1480 616 100 Other: Voiding Method Indwelling Catheter Indwelling Catheter # Voids 1 # Bowel Movements 1 - Exam GENERAL EXAM: Sedated, arousable comfortable in no apparent distress. HEAD: Normocephalic. EYES: Normal reaction of pupils, equal size. NOSE: Clear with pink turbinates. THROAT: No erythema or exudates. NECK: No masses, no JVD. CHEST: No chest wall deformity. LUNGS: Equal air entry with no crackles, wheeze, rhonchi or dullness. CVS: S1 and S2 normal with no audible murmurs, regular rhythm. ABDOMEN: No hepatosplenomegaly, normal bowel sounds, no guarding or rigidity. SPINE: No scoliosis or deformity SKIN: No rashes CENTRAL NERVOUS SYSTEM: No focal deficits, tone is normal in all 4 extremities. Extremities: There is no peripheral edema. No clubbing, no cyanosis. Peripheral pulses are intact. - Labs CBC & Chem 7: 04/25/17 05:15 04/25/17 05:15 Labs: Abnormal Lab Results - Last 24 Hours (Table) 04/24/17 Range/Units 10:43 POC Glucose (mg/dL) 118 H (75-99) mg/dL Microbiology - Last 24 Hours (Table) 04/24/17 11:40 Urine Culture - Preliminary Urine,Catheterized Assessment and Plan Plan: Impression: #1 Altered mental status secondary to suspected withdrawal from cocaine and the requirement of IV sedation. #2 Cocaine abuse for greater than 30 years. Was recently admitted to [facility]. #3 Chest pain without evidence of acute coronary syndrome suspect secondary to cocaine use, in a patient with a known history of coronary artery disease and previous stent placements. #4 Chronic and ongoing tobacco dependence. #5 Chronic obstructive pulmonary disease. #6 Hypertension. #7 Depression history of. Plan: The patient was seen and evaluated by Dr. Simms. We will hold all the sedation. The patient had been given Ambien last night as well. We will wait until he is fully awake and alert and see how he responds. He probably could be transferred out of the intensive care unit later today. We will continue to follow make further recommendations based on his clinical status.
--- NOTE | 2017-04-25 11:03 | ECHOF ---
Referral Reason:cp MEASUREMENTS -------- HEIGHT: 175.3 cm WEIGHT: 99.3 kg BP: 129/86 RVIDd: 2.6 cm (< 3.3) IVSd: 1.1 cm (0.6 - 1.1) LVIDd: 4.9 cm (3.9 - 5.3) LVPWd: 1.3 cm (0.6 - 1.1) IVSs: 1.3 cm LVIDs: 3.4 cm LVPWs: 1.7 cm LA Diam: 3.3 cm (2.7 - 3.8) LAESV Index (A-L): 20.52 ml/m Ao Diam: 3.3 cm (2.0 - 3.7) AV Cusp: 2.1 cm (1.5 - 2.6) MV EXCURSION: 13.341 mm (> 18.000) MV EF SLOPE: 77 mm/s (70 - 150) EPSS: 1.1 cm MV E Lauro: 0.80 m/s MV DecT: 258 ms MV A Lauro: 0.88 m/s MV E/A Ratio: 0.91 FINDINGS -------- Sinus rhythm. This was a technically adequate study. The left ventricular size is normal. There is mild concentric left ventricular hypertrophy. Overall left ventricular systolic function is normal with, an EF between 55 - 60 %. The right ventricle is normal in size and function. Normal LA size by volume 22+/-6 ml/m2. The right atrium is normal in size. The aortic valve is trileaflet and appears structurally normal. The mitral valve is normal. The tricuspid valve appears structurally normal. The pulmonic valve was not well visualized. The aortic root size is normal. Normal inferior vena cava with normal inspiratory collapse consistent with estimated right atrial pressure of 5 mmHg. There is no pericardial effusion. CONCLUSIONS -------- 1. Sinus rhythm. 2. The aortic root size is normal. 3. Normal inferior vena cava with normal inspiratory collapse consistent with estimated right atrial pressure of 5 mmHg. 4. There is no pericardial effusion. 5. This was a technically adequate study. 6. There is mild concentric left ventricular hypertrophy. 7. Overall left ventricular systolic function is normal with, an EF between 55 - 60 %. 8. Normal LA size by volume 22+/-6 ml/m2. 9. The aortic valve is trileaflet and appears structurally normal. 10. The mitral valve is normal. 11. The tricuspid valve appears structurally normal. 12. The pulmonic valve was not well visualized. [employer]: Yuli Nava RDCS
[2017-04-25] MEDS: busPIRone HCl 5 MG TAB PO SCH ×3 (11:16→22:01)
--- NOTE | 2017-04-25 14:49 | CONS ---
Mr. Marc is a 51-year-old male who [facility] to undergo evaluation fo chest discomfort. According to the patient he has been having chest discomfort, worse with deep breathing. He also said he had syncopal episode and he was out for 3 hours. He denies any substance abuse, although it appears that he was in [place] for polysubstance abuse. He has a history of coronary artery disease according to him status post stenting x2 done at [facility]. He also carries diagnosis of stroke. I do not have any record of that at this point. He has history of dyspnea on exertion. No clear PND and no orthopnea. No palpitations. He denies any history of heart failure and there was no documentation of any arrhythmia on admission. Full detail of his syncopal episode is not clear. Patient is sleepy while I was talking to him. According to the note there was no seizure- like activity. His drug screen was positive for cocaine. His coronary risk factor was remarkable for the history of smoking. He has a history of diabetes, hypertension. He is nondiabetic. His medications include Trazodone, Risperidone, thiamine, simvastatin, Seroquel , Trileptal, multivitamin, nifedipine 60 mg daily, metoprolol tartrate 50 mg twice a day, lisinopril 40 mg daily, isosorbide mononitrate 30 mg daily, gabapentin, aspirin, albuterol, and vitamin D. REVIEW OF SYSTEMS: RESPIRATORY SYSTEM: He has dyspnea on exertion. He has history of chronic tobacco use. GI SYSTEM: He denies any recent GI bleed. No peptic ulcer disease. SYSTEM: No dysuria or hematuria. NERVOUS SYSTEM: He had history of stroke. PHYSICAL EXAMINATION: He is a 51-year-old male, quite sleepy, answering questions. Blood pressure 122/60 with heart rate in the 60s. HEAD: Normocephalic. EYES: Scleral anicteric. NECK: Good upstroke. No bruit, no jugular venous distention. LUNGS: Clear to auscultation. HEART: Regular rate and rhythm. S1, S2. No S2, no S3, with systolic murmur heard at the base. ABDOMEN: Soft, nontender. Positive bowel sounds. No organomegaly. EXTREMITIES: Intact pulses. Lab data revealed a positive cocaine in the urine. Troponin less than 0.012, less than 0.012 and 0.018. BUN and creatinine of 16.8, potassium of 5.4, hemoglobin of 14.8. EKG revealed a sinus mechanism with normal axis and intervals with nonspecific ST segment changes in the inferior leads. Chest x- ray shows no acute changes. IMPRESSION: 1. Chest discomfort of unclear etiology in a patient who carries diagnosis of coronary artery disease, rule out angina pectoris. No evidence of acute coronary syndrome so far. 2. Syncope of unclear details. The history is quite limited. 3. History of coronary artery disease. 4. Polysubstance abuse with positive cocaine. 5. Hypertension. 6. Hyperlipidemia. 7. Chronic tobacco abuse. RECOMMENDATIONS: I will obtain echocardiogram with Doppler. Will also obtain a stress dobutamine echocardiogram to evaluate his coronary perfusion. I will try to obtain the report of the workup that was done previously in [facility]. Depending on his progress further recommendations will be made. Thank you for this consult. I will follow with you. AQUILES
--- NOTE | 2017-04-25 18:00 | P.PN ---
Subjective This is a 50-year-old gentleman with previous history of CAD and polysubstance use was admitted to [place] [facility] a day prior to the day of admission was brought into the hospital with complaints of chest pain Patient states that he has chest pain midsternal location radiating to the back associated with deep breathing denies having any alleviating or exacerbating factors Initial EKG when compared to a previous EKG does show subtle changes in 2-[address] depressions Cardiac enzyme initially was negative Patient states that his pain is constant Patient was noted to have cocaine in his drug screen Smokes about a pack of cigarettes daily Denies having any recent illnesses Denies having headaches nausea vomiting abdominal pain diarrhea urinary urgency or frequency Patient was also reported to have a episode of syncope apparently lost consciousness for about a minute thereafter regain consciousness without any confusion It was witnessed by his roommate who did not stay there is any seizure-like activity according to the patient 04/24/17 pt was apparently was more confused was seen in the ICU does not respond to commands CIWA score of 32 was reported and hence was triaged to the ICU 2016 Overnight patient received a dose of Ativan and Ambien Patient is drowsy however were appropriate to questions. Patient was able to wake up and answer some questions appropriately however falls asleep during our conversation Patient appears diaphoretic Echocardiogram today was reviewed No other overnight events are reported Objective - Vital Signs Vital signs: Vital Signs Temp 97 F L 04/25/17 16:00 Pulse 80 04/25/17 17:00 Resp 98 H 04/25/17 17:00 BP 130/90 04/25/17 17:00 Pulse Ox 98 04/25/17 17:00 Intake & Output 04/24/17 04/25/17 04/25/17 18:59 06:59 18:59 Intake Total 510 975 750 Output Total 1480 616 830 Balance -970 359 -80 Weight 99.6 kg Intake: IV 900 750 Sodium Chloride 0.9% 1, 900 750 000 ml @ 75 mls/hr IV . [id number] [facility]HEL[facility] Rx#:[id number] Intake, IV Titration 250 75 Amount Sodium Chloride 0.9% 1, 250 75 000 ml @ 75 mls/hr IV . [id number] MICHELLE Rx#:[id number] Oral 260 Output: Urine 1480 616 830 Other: Voiding Method Indwelling Catheter Indwelling Catheter Indwelling Catheter # Voids 1 # Bowel Movements 1 - Exam Physical exam lethargic is slightly arousable Neck supple no JVD Lungs good air entry clear to auscultation no rhonchi or wheezing Heart S1-S2 heard regular rate and rhythm no murmurs appreciated Abdomen is soft nontender no organomegaly bowel sounds are intact Neurologically moves all 4 extremities Skin no abnormalities appreciated - Labs CBC & Chem 7: 04/25/17 05:15 04/25/17 05:15 Labs: Microbiology - Last 24 Hours (Table) 04/24/17 11:40 Urine Culture - Final Urine,Catheterized Assessment and Plan Plan: #1 syncope likely vasovagal #2 atypical chest pain likely pleuritic in nature #3 history of CAD #4 polysubstance use #5 hypertension. #6 dyslipidemia #7 ongoing tobacco use #8 acute toxic encephalopathy Plan Echo was reviewed Toxic encephalopathy appears to be slowly improving Once patient is more arousable could likely be triaged out of the intensive care unit Patient's right atrial pressure was noted to be 5 Continue with IV fluids at this time
[2017-04-26] MEDS: HEPARIN SODIUM,PORCINE 5,000 UNIT/ML 1 ML VIAL SQ SCH ×4 (00:02→23:50)
[2017-04-26 04:59] LABS: Basophils # (A) 0.1 k/uL (0-0.2); Basophils % (A) 1 %; CH 29.7; CHCM 32.7; Eosinophils # (A) 0.3 k/uL (0-0.7); Eosinophils % (A) 4 %; HDW 2.21; HGB 14.1 gm/dL (13.0-17.5); Luc # (Auto) 0.16; Luc % (Auto) 2; Lymphocytes # (A) 1.8 k/uL (1.0-4.8); Lymphocytes % (A) 25 %; MCH 30.7 pg (25.0-35.0); MCHC 33.6 g/dL (31.0-37.0); MCV 91.2 fL (80.0-100.0); Mean Platelet Volume 7.7; Monocytes # (A) 0.4 k/uL (0-1.0); Monocytes % (A) 6 %; Neutrophils # (A) 4.5 k/uL (1.3-7.7); Neutrophils % (A) 62 %; RDW 14.2 % (11.5-15.5); WBC 7.2 k/uL (3.8-10.6); WBC (Perox) 7.07
[2017-04-26 05:11] LABS: ALT 22 U/L (21-72); AST 16 U/L (17-59); Alkaline Phosphatase 67 U/L (38-126); Anion Gap 7 mmol/L; Blood Urea Nitrogen 19 mg/dL (9-20); Calcium 9.1 mg/dL (8.4-10.2); Carbon Dioxide 25 mmol/L (22-30); Chloride 104 mmol/L (98-107); Glucose 113 mg/dL (74-99); Non-African American GFR(MDRD) >60 (>60 ml/min/1.73 sqM); Potassium 4.3 mmol/L (3.5-5.1); Sodium 136 mmol/L (137-145); Total Bilirubin 0.7 mg/dL (0.2-1.3)
--- NOTE | 2017-04-26 07:22 | PN ---
This gentleman has history of cocaine abuse was in [place], developed chest pain. His troponins are normal. He also had a syncopal spell after 3 sublingual nitroglycerins and so far seems kind of lethargic, but his sedation is being held. He is resting comfortably without symptoms. However, when I talked to him, he is able to wake up and respond to questions. Vital signs are stable. S1, S2 heard normally. Lungs are clear. Abdomen is soft, nontender. Lower extremities reveal diminished pulses, but palpable. No focal motor deficits. This patient does not have any evidence of acute myocardial injury. He probably has underlying sleep apnea syndrome and pulmonology is already follow the patient. I would recommend that we check a D-dimer to rule out any other causes for syncope such as pulmonary embolism. The patient is already on subcu heparin. We will continue current medications and no additional sedation. AQUILES
[2017-04-26] MEDS: SODIUM CHLORIDE 0.9% 1,000 ML IV SCH ×2 (08:28→17:28)
[2017-04-26] MEDS: LISINOPRIL 20 MG TAB PO SCH (08:29)
[2017-04-26] MEDS: NICOTINE 21MG/24HR PATCH TRANSDERM SCH (08:29)
[2017-04-26] MEDS: ASPIRIN 325 MG TAB PO SCH (08:29)
[2017-04-26] MEDS: GABAPENTIN 300 MG CAP PO SCH ×2 (08:29→21:36)
[2017-04-26] MEDS: ISOSORBIDE MONONITRATE ER 30 MG TAB.ER.24H PO SCH (08:29)
[2017-04-26] MEDS: ATORVASTATIN 40 MG TAB PO SCH (08:29)
[2017-04-26] MEDS: OXcarbazepine 300 MG TAB PO SCH ×2 (08:30→21:35)
[2017-04-26] MEDS: METOPROLOL TARTRATE 50 MG TAB PO SCH ×2 (08:30→21:36)
--- NOTE | 2017-04-26 11:48 | P.PN ---
Subjective This is a 51-year-old gentleman with a known history of chronic bronchial asthma , anxiety/depression, hypertension, coronary artery disease with previous stent placements 2, chronic and ongoing tobacco dependence, 30+ years of cocaine abuse. He was recently admitted to [facility] when he developed chest pain yesterday. He did utilize nitroglycerin and the pain subsided for a while and then recurred. He was transferred here for the same. Admitted to the observation unit. His EKG did not reveal any acute ST or T- wave abnormalities. His troponins are negative 2. Mikael within normal limits. Electrolytes, renal function within normal limits. His urine drug screen was positive for tricyclics and cocaine. The patient had denied any history of alcohol abuse however he was placed on the CIWA protocol. Initially his number was 8/9 however earlier today he was at 31 and we are consulted for the same. The patient was restless and hallucinating and walking in and out of other patient rooms and he was given 2 mg of Ativan IV push. Upon evaluation by Dr. Banda the patient is somewhat obtunded. Most likely secondary to the Ativan. His blood glucose was 118. We gave 0.4 mg of Narcan without any immediate response. He is maintaining good O2 saturations in the mid 90s on room air. He is hemodynamically stable. Chest x-ray revealed chronic changes in no acute cardiopulmonary process. Metallic BBs were noted in the mid upper chest and left axilla region. The patient is seen again today 04/25/2017 in follow-up in the intensive care unit. He was quite sedated and obtunded yesterday when Dr. Banda 90 S. patient in the observation unit secondary to Ativan. He did again get restless and agitated and required Haldol and repeated Ativan. The last dose was approximately 1 AM this morning. Today on evaluation he is still quite sedate but arousable and moving all fours. He responds to verbal stimulation. He has been maintaining good O2 saturations in the upper 90s on room air. He's been hemodynamically stable. Afebrile. No leukocytosis. The patient is seen again today 04/26/2017 in follow-up in the intensive care unit. He is much more awake and alert in no acute distress. He is cooperative. He denies any chest pain, palpitations lightheadedness or dizziness. He denies any worsening shortness of breath, cough or congestion. He continues to maintain good O2 saturations in the 90s on room air. His been hemodynamically stable. Afebrile. He is cleared for transfer out of the intensive care unit. Objective - Vital Signs Vital signs: Vital Signs Temp 97.8 F 04/26/17 11:43 Pulse 83 04/26/17 11:43 Resp 18 04/26/17 11:43 BP 135/73 04/26/17 11:43 Pulse Ox 93 L 04/26/17 11:43 Intake & Output 04/25/17 04/26/17 04/26/17 18:59 06:59 18:59 Intake Total 900 750 Output Total 1080 790 Balance -180 -40 Weight 102.9 kg Intake: IV 900 750 Sodium Chloride 0.9% 1, 900 750 000 ml @ 75 mls/hr IV . [id number] MICHELLE Rx#:[id number] Output: Urine 1080 790 Other: Voiding Method Indwelling Catheter Indwelling Catheter - Exam GENERAL EXAM: Alert. comfortable in no apparent distress. HEAD: Normocephalic. EYES: Normal reaction of pupils, equal size. NOSE: Clear with pink turbinates. THROAT: No erythema or exudates. NECK: No masses, no JVD. CHEST: No chest wall deformity. LUNGS: Equal air entry with no crackles, wheeze, rhonchi or dullness. CVS: S1 and S2 normal with no audible murmurs, regular rhythm. ABDOMEN: No hepatosplenomegaly, normal bowel sounds, no guarding or rigidity. SPINE: No scoliosis or deformity SKIN: No rashes CENTRAL NERVOUS SYSTEM: No focal deficits, tone is normal in all 4 extremities. Extremities: There is no peripheral edema. No clubbing, no cyanosis. Peripheral pulses are intact. - Labs CBC & Chem 7: 04/26/17 04:27 04/26/17 04:27 Labs: Abnormal Lab Results - Last 24 Hours (Table) 04/26/17 Range/Units 04:27 Sodium 136 L (137-145) mmol/L Glucose 113 H (74-99) mg/dL AST 16 L (17-59) U/L Total Protein 6.0 L (6.3-8.2) g/dL Microbiology - Last 24 Hours (Table) 04/24/17 11:40 Urine Culture - Final Urine,Catheterized Assessment and Plan Plan: Impression: #1 Altered mental status secondary to suspected withdrawal from cocaine and the requirement of IV sedation. #2 Cocaine abuse for greater than 30 years. Was recently admitted to [facility]. #3 Chest pain without evidence of acute coronary syndrome suspect secondary to cocaine use, in a patient with a known history of coronary artery disease and previous stent placements. #4 Chronic and ongoing tobacco dependence. #5 Chronic obstructive pulmonary disease. #6 Hypertension. #7 Depression history of. Plan: The patient was seen and evaluated by Dr. Simms. He is stable from the pulmonary and critical care standpoint. He'll be transferred out of the intensive care unit today. We will continue to follow make further recommendations based on his clinical status.
[2017-04-26] MEDS: busPIRone HCl 5 MG TAB PO SCH ×3 (11:49→21:35)
[2017-04-26] MEDS: TRIHEXYPHENIDYL 2 MG TAB PO SCH ×3 (12:56→21:36)
--- NOTE | 2017-04-26 16:18 | P.PN ---
Subjective This is a 50-year-old gentleman with previous history of CAD and polysubstance use was admitted to [place] [facility] a day prior to the day of admission was brought into the hospital with complaints of chest pain Patient states that he has chest pain midsternal location radiating to the back associated with deep breathing denies having any alleviating or exacerbating factors Initial EKG when compared to a previous EKG does show subtle changes in 2-[address]ressions Cardiac enzyme initially was negative Patient states that his pain is constant Patient was noted to have cocaine in his drug screen Smokes about a pack of cigarettes daily Denies having any recent illnesses Denies having headaches nausea vomiting abdominal pain diarrhea urinary urgency or frequency Patient was also reported to have a episode of syncope apparently lost consciousness for about a minute thereafter regain consciousness without any confusion It was witnessed by his roommate who did not stay there is any seizure-like activity according to the patient 04/24/17 pt was apparently was more confused was seen in the ICU does not respond to commands CIWA score of 32 was reported and hence was triaged to the ICU 2016 Overnight patient received a dose of Ativan and Ambien Patient is drowsy however were appropriate to questions. Patient was able to wake up and answer some questions appropriately however falls asleep during our conversation Patient appears diaphoretic Echocardiogram today was reviewed No other overnight events are reported 04/26/2017 Patient is arousable states to have chest pain again Appears to have diffuse movement No other complaints are reported Denies having diarrhea abdominal pain difficulty breathing Objective - Vital Signs Vital signs: Vital Signs Temp 97.9 F 04/26/17 15:00 Pulse 74 04/26/17 15:00 Resp 18 04/26/17 15:00 BP 121/75 04/26/17 15:00 Pulse Ox 96 04/26/17 15:00 Intake & Output 04/25/17 04/26/17 04/26/17 18:59 06:59 18:59 Intake Total 900 750 Output Total 1080 790 Balance -180 -40 Weight 102.9 kg Intake: IV 900 750 Sodium Chloride 0.9% 1, 900 750 000 ml @ 75 mls/hr IV . [id number] [facility] Rx#:[id number] Output: Urine 1080 790 Other: Voiding Method Indwelling Catheter Indwelling Catheter # Voids 1 - Exam Physical exam lethargic is slightly more arousable and answers questions appropriately Neck supple no JVD Lungs good air entry clear to auscultation no rhonchi or wheezing Heart S1-S2 heard regular rate and rhythm no murmurs appreciated Abdomen is soft nontender no organomegaly bowel sounds are intact Neurologically moves all 4 extremities Skin no abnormalities appreciated - Labs CBC & Chem 7: 04/26/17 04:27 04/26/17 04:27 Labs: Abnormal Lab Results - Last 24 Hours (Table) 04/26/17 Range/Units 04:27 Sodium 136 L (137-145) mmol/L Glucose 113 H (74-99) mg/dL AST 16 L (17-59) U/L Total Protein 6.0 L (6.3-8.2) g/dL Microbiology - Last 24 Hours (Table) 04/24/17 11:40 Urine Culture - Final Urine,Catheterized Assessment and Plan Plan: #1 syncope likely vasovagal #2 atypical chest pain likely pleuritic in nature #3 history of CAD #4 polysubstance use #5 hypertension. #6 dyslipidemia #7 ongoing tobacco use #8 acute toxic encephalopathy #9 dyskinesia Plan Echo was reviewed Toxic encephalopathy appears to be slowly improving We'll restart patient's antimuscarinic agent due to movement disorder Continue monitoring patient judicious use of narcotics
[2017-04-26] MEDS: NITROGLYCERIN SL TABS 0.4 MG TAB SUBLINGUAL PRN ×4 (18:15→18:43)
[2017-04-26] MEDS ORDERED: diphenhydrAMINE 50 MG/ML 1 ML VIAL IVP PRN (19:56)
[2017-04-26] MEDS: KETOROLAC 30 MG/ML 1 ML VIAL IVP PRN (20:09)
[2017-04-27] MEDS: SODIUM CHLORIDE 0.9% 1,000 ML IV SCH ×2 (07:15→17:11)
[2017-04-27 07:51] LABS: Basophils % (A) 1 %; CH 29.5; CHCM 33.2; Eosinophils # (A) 0.2 k/uL (0-0.7); Eosinophils % (A) 3 %; HCT 43.2 % (39.0-53.0); HDW 2.27; HGB 14.4 gm/dL (13.0-17.5); Luc # (Auto) 0.12; Luc % (Auto) 2; Lymphocytes # (A) 1.8 k/uL (1.0-4.8); Lymphocytes % (A) 29 %; MCH 29.9 pg (25.0-35.0); MCHC 33.5 g/dL (31.0-37.0); MCV 89.3 fL (80.0-100.0); Mean Platelet Volume 7.8; Monocytes # (A) 0.4 k/uL (0-1.0); Monocytes % (A) 7 %; Neutrophils # (A) 3.7 k/uL (1.3-7.7); Neutrophils % (A) 59 %; RBC 4.83 m/uL (4.30-5.90); RDW 13.8 % (11.5-15.5); WBC 6.2 k/uL (3.8-10.6); WBC (Perox) 5.87
[2017-04-27 08:10] LABS: ALT 22 U/L (21-72); AST 12 U/L (17-59); Alkaline Phosphatase 62 U/L (38-126); Anion Gap 7 mmol/L; Blood Urea Nitrogen 14 mg/dL (9-20); Calcium 9.4 mg/dL (8.4-10.2); Carbon Dioxide 26 mmol/L (22-30); Chloride 106 mmol/L (98-107); Creatine Kinase 29 U/L (55-170); Glucose 88 mg/dL (74-99); Non-African American GFR(MDRD) >60 (>60 ml/min/1.73 sqM); Potassium 4.3 mmol/L (3.5-5.1); Sodium 139 mmol/L (137-145); Total Bilirubin 0.7 mg/dL (0.2-1.3); Total Protein 6.3 g/dL (6.3-8.2)
[2017-04-27] MEDS: KETOROLAC 30 MG/ML 1 ML VIAL IVP PRN ×3 (09:18→21:14)
[2017-04-27] MEDS: HEPARIN SODIUM,PORCINE 5,000 UNIT/ML 1 ML VIAL SQ SCH ×3 (09:18→23:23)
[2017-04-27] MEDS: NICOTINE 21MG/24HR PATCH TRANSDERM SCH (09:21)
[2017-04-27] MEDS: ASPIRIN 81 MG CHEW PO SCH (09:25)
[2017-04-27] MEDS: ATORVASTATIN 40 MG TAB PO SCH (09:26)
[2017-04-27] MEDS: GABAPENTIN 300 MG CAP PO SCH ×2 (09:27→21:15)
[2017-04-27] MEDS: busPIRone HCl 5 MG TAB PO SCH ×3 (09:27→21:14)
[2017-04-27] MEDS: OXcarbazepine 300 MG TAB PO SCH ×2 (09:28→21:14)
[2017-04-27] MEDS: ISOSORBIDE MONONITRATE ER 30 MG TAB.ER.24H PO SCH (09:28)
[2017-04-27] MEDS: LISINOPRIL 20 MG TAB PO SCH (09:28)
[2017-04-27] MEDS: METOPROLOL TARTRATE 50 MG TAB PO SCH ×2 (09:28→21:15)
[2017-04-27] MEDS: TRIHEXYPHENIDYL 2 MG TAB PO SCH ×3 (09:29→21:15)
--- NOTE | 2017-04-27 10:31 | PN ---
This gentleman came in with an episode of chest pain, did not have any troponin elevation. Had an echocardiogram that revealed normal systolic function. He is resting comfortably. BP control is good. Vital signs are stable. There is no JVD. S1, S2 heard normally. Heart sounds are heard distantly. Lungs are clear. Abdomen and lower extremity exam unchanged. Plan is to increase activity and move him to telemetry and he can have a stress test as an outpatient. He does not have any chest pain to suggest angina. AQUILES
[2017-04-27] MEDS ORDERED: methylPREDNISolone SOD SUCCI 125 MG/2 ML VIAL IV STA (11:50)
--- NOTE | 2017-04-27 16:38 | P.PN ---
Subjective This is a 50-year-old gentleman with previous history of CAD and polysubstance use was admitted to [place] [facility] a day prior to the day of admission was brought into the hospital with complaints of chest pain Patient states that he has chest pain midsternal location radiating to the back associated with deep breathing denies having any alleviating or exacerbating factors Initial EKG when compared to a previous EKG does show subtle changes in 2-[address]ressions Cardiac enzyme initially was negative Patient states that his pain is constant Patient was noted to have cocaine in his drug screen Smokes about a pack of cigarettes daily Denies having any recent illnesses Denies having headaches nausea vomiting abdominal pain diarrhea urinary urgency or frequency Patient was also reported to have a episode of syncope apparently lost consciousness for about a minute thereafter regain consciousness without any confusion It was witnessed by his roommate who did not stay there is any seizure-like activity according to the patient 04/24/17 pt was apparently was more confused was seen in the ICU does not respond to commands CIWA score of 32 was reported and hence was triaged to the ICU 2016 Overnight patient received a dose of Ativan and Ambien Patient is drowsy however were appropriate to questions. Patient was able to wake up and answer some questions appropriately however falls asleep during our conversation Patient appears diaphoretic Echocardiogram today was reviewed No other overnight events are reported 04/26/2017 Patient is arousable states to have chest pain again Appears to have diffuse movement No other complaints are reported Denies having diarrhea abdominal pain difficulty breathing 04/27/2017 Patient is arousable does stand up. Does complain of chest pain which is worse and on deep breathing States that he has some lightheadedness with walking Orthostatics are negative No diarrhea abdominal pain headaches blurry vision are reported Objective - Vital Signs Vital signs: Vital Signs Temp 98.3 F 04/27/17 07:00 Pulse 72 04/27/17 16:00 Resp 16 04/27/17 16:00 BP 147/86 04/27/17 11:58 Pulse Ox 97 04/27/17 07:00 Intake & Output 04/26/17 04/27/17 04/27/17 18:59 06:59 18:59 Intake Total 118 480 Output Total 325 1600 950 Balance -325 -6859 -470 Weight 102.9 kg 102.9 kg Intake: Oral 118 480 Output: Urine 325 1600 950 Other: Voiding Method Toilet Toilet Toilet Urinal Urinal # Voids 1 2 2 # Bowel Movements 1 - Exam Physical exam lethargic is slightly more arousable and answers questions appropriately Neck supple no JVD Lungs good air entry clear to auscultation no rhonchi or wheezing Heart S1-S2 heard regular rate and rhythm no murmurs appreciated Abdomen is soft nontender no organomegaly bowel sounds are intact Neurologically moves all 4 extremities Skin no abnormalities appreciated - Labs CBC & Chem 7: 04/27/17 07:26 04/27/17 07:26 Labs: Abnormal Lab Results - Last 24 Hours (Table) 04/27/17 Range/Units 07:26 AST 12 L (17-59) U/L Creatine Kinase 29 L (55-170) U/L Assessment and Plan Plan: #1 syncope likely vasovagal #2 atypical chest pain likely pleuritic in nature #3 history of CAD #4 polysubstance use #5 hypertension. #6 dyslipidemia #7 ongoing tobacco use #8 acute toxic encephalopathy #9 dyskinesia Plan Patient is improved Increase IV fluids Orthostatics are negative We'll give the patient a bolus of steroids 150mg of Solu-Medrol Increase IV fluids to 1 50 mL per hour Can likely be discharged back to [place] in the a.m.
[2017-04-27] MEDS ORDERED: QUEtiapine 200 MG TAB PO SCH (22:00)
--- NOTE | 2017-04-27 22:35 | PN ---
Mr. Marc is a 51-year-old male who was transferred from [place] for evaluation of chest pain and dizziness. He was in the ICU because of change in mental status. He appears to be more awake and alert at this point. He has a history of polysubstance abuse. He had some episodes of chest discomfort that has been continuous on and off, at times stabbing-like. The discomfort is worse when he takes a deep breath or with pressure on the chest. He underwent cardiac catheterization in 2010 in [facility], and at that time there was no evidence of progression of disease. He had a prior stent at the obtuse marginal branch that was patent. His medications at this time include: 1. Aspirin. 2. Lipitor 40 mg daily. 3. Isosorbide mononitrate 30 mg daily. 4. Lisinopril 40 mg daily. 5. Metoprolol tartrate 50 mg twice a day. 6. Nifedipine 60 mg daily. PHYSICAL EXAMINATION: Blood pressure 127/80 with a heart rate in the 60s and 70s. LUNGS: Clear. HEART: Regular rate and rhythm. S1, S2. No S3. No rub. Chest wall tenderness. LAB DATA: BUN and creatinine of 40 and 0.7. Hemoglobin 14.4. Potassium 4.3. IMPRESSION: 1. Polysubstance abuse. 2. History of coronary artery disease, stable by cardiac catheterization in 2010. 3. Chest pain, atypical for ischemic heart disease. 4. History of hypertension. 5. Hyperlipidemia. RECOMMENDATIONS: From the cardiac standpoint, I would not recommend any further cardiac workup at this time. Patient can follow up with his primary press and blow machine tender down the road to be further evaluated. Of note that his left ventricular systolic function showed a preserved ventricular size and systolic function. [facility]
[2017-04-28] MEDS: SODIUM CHLORIDE 0.9% 1,000 ML IV SCH ×2 (06:06→07:15)
[2017-04-28] MEDS: HEPARIN SODIUM,PORCINE 5,000 UNIT/ML 1 ML VIAL SQ SCH (08:11)
[2017-04-28] MEDS: GABAPENTIN 300 MG CAP PO SCH (08:12)
[2017-04-28] MEDS: NICOTINE 21MG/24HR PATCH TRANSDERM SCH (08:12)
[2017-04-28] MEDS: busPIRone HCl 5 MG TAB PO SCH (08:12)
[2017-04-28] MEDS: TRIHEXYPHENIDYL 2 MG TAB PO SCH (08:13)
[2017-04-28] MEDS: ASPIRIN 81 MG CHEW PO SCH (08:14)
[2017-04-28] MEDS: ATORVASTATIN 40 MG TAB PO SCH (08:14)
[2017-04-28] MEDS: OXcarbazepine 300 MG TAB PO SCH (08:14)
[2017-04-28] MEDS: METOPROLOL TARTRATE 50 MG TAB PO SCH (08:14)
[2017-04-28] MEDS: ISOSORBIDE MONONITRATE ER 30 MG TAB.ER.24H PO SCH (08:14)
[2017-04-28 08:15] VITALS: RESP 16; TEMP 97.4
[2017-04-28] MEDS: LISINOPRIL 20 MG TAB PO SCH (08:15)
--- NOTE | 2017-04-28 11:47 | CDI ---
In responding to this query, please exercise your independent professional judgment. The [facility] Coding Staff and Clinical Documentation Specialists appreciate your assistance in clarifying documentation, maintaining compliance with coding guidelines, accurately documenting patients condition and capturing severity of illness. The fact that a question is asked does not imply that any particular answer is desired or expected. Communication forms are a method of clarifying documentation and are not made part of the Legal Health Record. Thank you in advance for your clarification. Last Revision, December 2015 Mikala Lyn [address] [place] [address] Documentation Clarification Form Date: 04/28/2017 11:29:00 AM From: Erika Magdaleno CCS, CCDS Admit Date: 04/24/2017 9:18:00 AM Patient Name: Uzair Marc Visit Number: [id number] Discharge Date: Dr. Royl García: Per the Pulmonary/Critical Care consultation: "Altered mental status secondary to suspected withdrawal from cocaine and the requirement of IV sedation. Cocaine abuse for greater than 30 years. Was recently admitted to [facility]." Patient had aggressive behavior in ICU: climbing over bed rails, threatened to leave AMA, yelling at staff, pulling at IDC & heart monitor leads. Patient history/risk factors: Long history of cocaine abuse, CAD, Hypertension , MD, current smoker. Clinical Indicators: Arrived via EMS from rehab facility with chest pain, relieved w/Nitro, possible syncopal event, requesting pain medications. Labs: Drug screen positive for Antidepressants & Cocaine. Vital Signs: T 97.4*, P 60-53*, R 18, BP 111/69-95/51, PO 98 ra Treatment: Fall precautions, Seizure precautions, Pulmonary/Critical Care consult, Cardiology consult. Nitropaste, IV fluid rate 50, Albuterol Neb INH, IV Ativan, Haldol, IV Heparin, Nitro sl, Seroquel, Neurontin, IV Solumedrol. Admitted to ICU. In order to capture the severity of condition, if possible and in your professional opinion, please clarify the following diagnosis and reason for admission and document if the condition was present on admission: Chest pain o Describe cause if known. Substance withdrawal o Due to specific drug or drugs Other: please describe: Undetermined Type of Substance Disorder: Abuse Dependence Use Unknown Please document in your progress notes and discharge summary in order to capture severity of illness and risk of mortality. Include clinical findings that support your diagnosis. FYI: Press F11 to launch patient chart Place X here if this finding has no clinical significance, is not applicable or if you are not able to provide any additional documentation. Thank You. AQUILES
[2017-04-28 15:39] VITALS: BP 116/67; PULSE 69
--- NOTE | 2017-04-28 16:22 | P.DS ---
Providers Date of admission: 04/24/17 09:18 Attending physician: Roly García MD Consults: 04/23/17 16:04 Consult Physician Urgent Consulting Provider: Christopher Carbajal Consult Reason/Comments: chest pain Do you want consulting provider notified?: Yes 04/24/17 10:22 Consult Physician Stat Consulting Provider: Lynn Banda Consult Reason/Comments: ICU management Do you want consulting provider notified?: Yes Primary care physician: Physician Nonstaff Hospital Course: This is a 50-year-old gentleman with previous history of CAD and polysubstance use was admitted to [facility] a day prior to the day of admission was brought into the hospital with complaints of chest pain Patient states that he has chest pain midsternal location radiating to the back associated with deep breathing denies having any alleviating or exacerbating factors Initial EKG when compared to a previous EKG does show subtle changes in 2-[address] depressions Cardiac enzyme initially was negative Patient states that his pain is constant Patient was noted to have cocaine in his drug screen Smokes about a pack of cigarettes daily Denies having any recent illnesses Denies having headaches nausea vomiting abdominal pain diarrhea urinary urgency or frequency Patient was also reported to have a episode of syncope apparently lost consciousness for about a minute thereafter regain consciousness without any confusion It was witnessed by his roommate who did not stay there is any seizure-like activity according to the patient 04/24/17 pt was apparently was more confused was seen in the ICU does not respond to commands CIWA score of 32 was reported and hence was triaged to the ICU 2016 Overnight patient received a dose of Ativan and Ambien Patient is drowsy however were appropriate to questions. Patient was able to wake up and answer some questions appropriately however falls asleep during our conversation Patient appears diaphoretic Echocardiogram today was reviewed No other overnight events are reported 04/26/2017 Patient is arousable states to have chest pain again Appears to have diffuse movement No other complaints are reported Denies having diarrhea abdominal pain difficulty breathing 04/27/2017 Patient is arousable does stand up. Does complain of chest pain which is worse and on deep breathing States that he has some lightheadedness with walking Orthostatics are negative No diarrhea abdominal pain headaches blurry vision are reported - Exam Physical exam lethargic is slightly more arousable and answers questions appropriately Neck supple no JVD Lungs good air entry clear to auscultation no rhonchi or wheezing Heart S1-S2 heard regular rate and rhythm no murmurs appreciated Abdomen is soft nontender no organomegaly bowel sounds are intact Neurologically moves all 4 extremities Skin no abnormalities appreciated Plan: #1 syncope likely vasovagal #2 atypical chest pain likely pleuritic in nature #3 history of CAD #4 polysubstance use #5 hypertension. #6 dyslipidemia #7 ongoing tobacco use #8 acute toxic encephalopathy #9 dyskinesia steroids to continue to for the next 4 days Patient will need outpatient follow-up by his previous records management specialist Echocardiogram did not reveal all motion of the malleus Patient continues to have pleuritic chest pain Please discharged to substance abuse rehab facility Patient Condition at Discharge: Fair Plan - Discharge Summary New Discharge Prescriptions: New predniSONE 50 mg PO DAILY #5 tab Continue traZODone HCL 50 - 150 mg PO HS Nitroglycerin Sl Tabs [Nitrostat] 0.4 mg SUBLINGUAL Q5M PRN PRN Reason: Chest Pain Ibuprofen [Motrin] 600 mg PO Q6HR PRN PRN Reason: Pain Albuterol Sulfate [Ventolin HFA] 2 puff INHALATION RT-QID PRN PRN Reason: Shortness Of Breath Ergocalciferol (Vitamin D2) [Vitamin D2] 50,000 unit PO Q7D Acetaminophen Tab [Tylenol] 650 mg PO Q4H PRN PRN Reason: Pain Simvastatin [Zocor] 20 mg PO HS busPIRone HCL 15 mg PO TID QUEtiapine [SEROquel] 400 mg PO HS Trihexyphenidyl HCl 5 mg PO TID Metoprolol Tartrate [Lopressor] 50 mg PO BID Lisinopril 40 mg PO DAILY OXcarbazepine [Trileptal] 300 mg PO BID Gabapentin [Neurontin] 300 mg PO BID Aspirin EC [Ecotrin Low Dose] 81 mg PO DAILY Thiamine [Vitamin B-1] 100 mg PO DAILY NIFEdipine [NIFEdipine ER] 60 mg PO DAILY Multivitamins, Thera [Multivitamin (formulary)] 1 tab PO BID Isosorbide Mononitrate ER [Imdur] 30 mg PO DAILY Discontinued Chlorpheniramine Maleate [Chlor-Trimeton] 4 mg PO Q4HR PRN PRN Reason: Anxiety QUEtiapine [SEROquel] 200 mg PO HS Discharge Medication List Acetaminophen Tab [Tylenol] 650 mg PO Q4H PRN 04/23/17 [History] Albuterol Sulfate [Ventolin HFA] 2 puff INHALATION RT-QID PRN 04/23/17 [History] Aspirin EC [Ecotrin Low Dose] 81 mg PO DAILY 04/23/17 [History] Ergocalciferol (Vitamin D2) [Vitamin D2] 50,000 unit PO Q7D 04/23/17 [History] Gabapentin [Neurontin] 300 mg PO BID 04/23/17 [History] Ibuprofen [Motrin] 600 mg PO Q6HR PRN 04/23/17 [History] Isosorbide Mononitrate ER [Imdur] 30 mg PO DAILY 04/23/17 [History] Lisinopril 40 mg PO DAILY 04/23/17 [History] Metoprolol Tartrate [Lopressor] 50 mg PO BID 04/23/17 [History] Multivitamins, Thera [Multivitamin (formulary)] 1 tab PO BID 04/23/17 [History] NIFEdipine [NIFEdipine ER] 60 mg PO DAILY 04/23/17 [History] Nitroglycerin Sl Tabs [Nitrostat] 0.4 mg SUBLINGUAL Q5M PRN 04/23/17 [History] OXcarbazepine [Trileptal] 300 mg PO BID 04/23/17 [History] QUEtiapine [SEROquel] 400 mg PO HS 04/23/17 [History] Simvastatin [Zocor] 20 mg PO HS 04/23/17 [History] Thiamine [Vitamin B-1] 100 mg PO DAILY 04/23/17 [History] Trihexyphenidyl HCl 5 mg PO TID 04/23/17 [History] busPIRone HCL 15 mg PO TID 04/23/17 [History] traZODone HCL 50 - 150 mg PO HS 04/23/17 [History] predniSONE 50 mg PO DAILY #5 tab 04/28/17 [Rx] Follow up Appointment(s)/Referral(s): Nonstaff,Physician [Primary Care Provider] - 1-2 days Discharge Disposition: TRANSFER TO PSYCH HOSP/UNIT
== END 2017-04-28 17:30 | DRG 312 ==
LOC: EC 14:08 → 3OBS 17:54 → OBSVTOIN 04-24 09:18 → 6ICU 04-24 11:03 → 5MS5E 04-26 11:14
PROVIDERS: ADMIT Internal Medicine; ATTEND Internal Medicine
PROC: HZ2ZZZZ Detoxification Services for Substance Abuse Treatment (ICD-10-PCS; principal; 2017-04-24)
DX: R55 Syncope and collapse (principal); G92 Toxic encephalopathy; F14.23 Cocaine dependence with withdrawal; R09.1 Pleurisy; I10 Essential (primary) hypertension; F32.9 Major depressive disorder, single episode, unspecified; J44.9 Chronic obstructive pulmonary disease, unspecified; E78.5 Hyperlipidemia, unspecified; R94.31 Abnormal electrocardiogram [ECG] [EKG]; G89.29 Other chronic pain; M54.9 Dorsalgia, unspecified; I25.2 Old myocardial infarction; G47.30 Sleep apnea, unspecified; G24.9 Dystonia, unspecified; I25.10 Atherosclerotic heart disease of native coronary artery without angina pectoris; R00.1 Bradycardia, unspecified; F41.9 Anxiety disorder, unspecified; F19.10 Other psychoactive substance abuse, uncomplicated; R01.1 Cardiac murmur, unspecified; F17.210 Nicotine dependence, cigarettes, uncomplicated; Z83.3 Family history of diabetes mellitus; Z80.3 Family history of malignant neoplasm of breast; Z79.899 Other long term (current) drug therapy; Z95.5 Presence of coronary angioplasty implant and graft; Z88.6 Allergy status to analgesic agent; Z88.8 Allergy status to other drugs, medicaments and biological substances; Z91.018 Allergy to other foods; Z83.79 Family history of other diseases of the digestive system; Z79.82 Long term (current) use of aspirin; Z79.1 Long term (current) use of non-steroidal anti-inflammatories (NSAID)
CPT/HCPCS: 36415; 71020; 80048; 80053; 80061; 80306; 81003; 82550; 82553; 83735; 84484; 85025; 85379; 85610; 85730; 87086; 93005; 93306; 96374; 99285

== ENCOUNTER 2017-04-29 19:56 | Emergency (ER) | payer OTHER ==
[2017-04-29 20:08] VITALS: RESP 18
[2017-04-29] MEDS ORDERED: KETOROLAC 30 MG/ML 1 ML VIAL IVP STA (20:45)
[2017-04-29 21:00] LABS: Basophils # (A) 0.1 k/uL (0-0.2); Basophils % (A) 1 %; CH 29.2; CHCM 32.4; Eosinophils # (A) 0.2 k/uL (0-0.7); Eosinophils % (A) 2 %; HCT 40.6 % (39.0-53.0); HDW 2.25; HGB 13.6 gm/dL (13.0-17.5); Luc # (Auto) 0.16; Luc % (Auto) 1; Lymphocytes # (A) 2.5 k/uL (1.0-4.8); Lymphocytes % (A) 22 %; MCH 30.3 pg (25.0-35.0); MCHC 33.6 g/dL (31.0-37.0); MCV 90.3 fL (80.0-100.0); Mean Platelet Volume 8.7; Monocytes # (A) 0.8 k/uL (0-1.0); Monocytes % (A) 7 %; Neutrophils # (A) 7.6 k/uL (1.3-7.7); Neutrophils % (A) 67 %; WBC 11.3 k/uL (3.8-10.6); WBC (Perox) 10.99
--- NOTE | 2017-04-29 21:03 | ED ---
Chest Pain HPI - General Chief Complaint: Chest Pain Stated Complaint: Chest Pain Time Seen by Provider: 04/29/17 20:14 Source: patient Mode of arrival: EMS Limitations: no limitations - History of Present Illness Initial Comments: Patient is a 51-year-old male, discharged from this facility yesterday to a drug rehabilitation center, who presents today with a chief complaint of chest pain. Patient states that his chest pain is pressure in nature, is substernal and radiates to the left side of his chest, it is worsened by deep breathing. Patient cannot identify any alleviating factors though he states while he was at his rehab facility, he was given several doses of nitro, with mild to moderate relief patient states the pain returned however and the decision was made to send him to the ER. Review of her recent discharge summary shows a negative thorough cardiac workup. MD Complaint: chest pain Onset/Timin -: days(s) Onset: during rest Pain Location: substernal Pain Radiation: LUE Severity: moderate Quality: heaviness Consistency: constant Improves With: nitroglycerin Worsens With: inspiration Treatments Prior to Arrival: nitroglycerin - Related Data Home Medications Medication Instructions Recorded Confirmed Acetaminophen Tab [Tylenol] 650 mg PO Q4H PRN MDD 6 tablets 04/23/17 04/29/17 Albuterol Sulfate [Ventolin HFA] 2 puff INHALATION RT-QID PRN 04/23/17 04/29/17 Aspirin EC [Ecotrin Low Dose] 81 mg PO DAILY 04/23/17 04/29/17 Ergocalciferol (Vitamin D2) 50,000 unit PO Q7D 04/23/17 04/29/17 [Vitamin D2] Gabapentin [Neurontin] 300 mg PO BID 04/23/17 04/29/17 Ibuprofen [Motrin] 600 mg PO Q6HR PRN 04/23/17 04/29/17 Isosorbide Mononitrate ER [Imdur] 30 mg PO DAILY 04/23/17 04/29/17 Lisinopril 40 mg PO DAILY 04/23/17 04/29/17 Metoprolol Tartrate [Lopressor] 50 mg PO BID 04/23/17 04/29/17 Multivitamins, Thera [Multivitamin 1 tab PO BID 04/23/17 04/29/17 (formulary)] NIFEdipine [NIFEdipine ER] 60 mg PO DAILY 04/23/17 04/29/17 Nitroglycerin Sl Tabs [Nitrostat] 0.4 mg SUBLINGUAL Q5M PRN 04/23/17 04/29/17 OXcarbazepine [Trileptal] 300 mg PO BID 04/23/17 04/29/17 Simvastatin [Zocor] 20 mg PO HS 04/23/17 04/29/17 Thiamine [Vitamin B-1] 100 mg PO DAILY 04/23/17 04/29/17 Trihexyphenidyl HCl 5 mg PO TID 04/23/17 04/29/17 busPIRone HCL 15 mg PO TID 04/23/17 04/29/17 traZODone HCL 50 mg PO HS PRN 04/23/17 04/29/17 Chlorpheniramine Maleate 4 mg PO Q4H PRN MDD 4 doses 04/29/17 04/29/17 [Chlor-Trimeton] Mylanta 30 ml PO Q4H PRN 04/29/17 04/29/17 QUEtiapine FUMARATE [SEROquel] 600 mg PO HS 04/29/17 04/29/17 traZODone HCL 150 mg PO HS PRN 04/29/17 04/29/17 traZODone HCL [Desyrel] 100 mg PO HS PRN 04/29/17 04/29/17 Previous Rx's Medication Instructions Recorded predniSONE 50 mg PO DAILY #5 tab 04/28/17 Naproxen [Naprosyn] 500 mg PO Q12HR PRN #20 tab 04/29/17 Allergies Allergy/AdvReac Type Severity Reaction Status Date / Time benztropine [From Cogentin] Allergy Unknown Verified 04/29/17 20:08 tomato Allergy Unknown Verified 04/29/17 20:08 ibuprofen [From Motrin] AdvReac Rash/Hives Verified 04/29/17 20:08 Review of Systems ROS Statement: Those systems with pertinent positive or pertinent negative responses have been documented in the HPI. Patient denies fevers, chills, dizziness, dysuria. Patient admits to shortness of breath, chest pain, abdominal pain. ROS Other: All systems not noted in ROS Statement are negative. Past Medical History Past Medical History: Asthma, Hypertension, Myocardial Infarction (ID) Additional Past Medical History / Comment(s): chronic back pain, cocaine use x 32 years (currently at [facility] for rehab.) Last Myocardial Infarction Date:: 2013 History of Any Multi-Drug Resistant Organisms: None Reported Past Surgical History: Heart Catheterization With Stent Past Anesthesia/Blood Transfusion Reactions: No Reported Reaction Date of Last Stent Placement:: 2009 Past Psychological History: No Psychological Hx Reported Smoking Status: Current every day smoker Past Alcohol Use History: None Reported Past Drug Use History: Cocaine - Past Family History Mother Family Medical History: Cancer, Diabetes Mellitus Additional Family Medical History / Comment(s): breast cancer, from cirrhosis of the liver Father Additional Family Medical History / Comment(s): from cirrhosis of the liver General Exam Limitations: no limitations General appearance: alert, in no apparent distress Head exam: Present: atraumatic, normocephalic Eye exam: Present: normal appearance ENT exam: Present: mucous membranes moist Neck exam: Present: normal inspection Respiratory exam: Present: normal lung sounds bilaterally Cardiovascular Exam: Present: regular rate, normal rhythm GI/Abdominal exam: Present: soft Rectal exam: Present: deferred Extremities exam: Present: normal inspection Back exam: Present: normal inspection Neurological exam: Present: alert, oriented X3 Psychiatric exam: Present: normal affect, normal mood Skin exam: Present: warm, dry, intact Course Vital Signs 04/29/17 20:00 Temperature 98.8 F Pulse Rate 85 Respiratory 18 Rate Blood Pressure 139/72 O2 Sat by Pulse 95 Oximetry Chest Pain [facility] - Core Measures AMI Core Measures Followed: Yes (Patient received 324 mg of aspirin prior to arrival, EKG done) - [facility] Patient is a 51-year-old male presents with chief complaint of chest pain. He had was discharged from this facility yesterday with a negative extensive cardiac workup. Previous visit reviewed, will repeat troponin and EKG today. We'll send basic laboratory evaluation, and will include a d-dimer as this patient is describing pleuritic type chest pain. Patient received aspirin 324 prior to arrival. He was given Toradol for pain on arrival. 11:32 PM Evaluation of this patient is unremarkable. Initial troponin is negative. EKG performed at 2007 shows normal sinus rhythm with a rate of 81 bpm. There are no acute ST segment elevations or depressions. Segments appear to be within normal limits. EKG is otherwise nonspecific. D-dimer is negative, PE is extremely unlikely. On reevaluation, the patient is asleep. When I woke him up the patient states that his chest still hurts. He is asking for pain medications. I offered Tylenol. I was unable to locate a recent cardiac stress test therefore I will contact Dr. Sultana who is his christmas bell ringer on his last visit when he was discharged yesterday. 11:42 PM I spoke with Dr. Walls, who is covering for Dr. Sultana who stated the patient will have an outpatient stress dressed test. At this time, patient had negative serial troponins one day ago, troponin here today is negative, there are no changes to the EKG, d-dimer is negative. Left threatening etiologies of chest pain are thought to be very low likelihood at this point. Patient will be discharged with instruction to follow-up with primary care, and cardiology. Patient remained stable in the emergency department. - [facility] Criteria Clinical Symptoms of DVT: (0) No No Alternative Diagnosis: (0) No Immobilization of Surgery in Previous 4 Weeks: (0) No Previous DVT/PE: (0) No Hemoptysis: (0) No Malignancy: (0) No Disposition Clinical Impression: Chest pain, unspecified Disposition: HOME SELF-CARE Condition: Good Instructions: Chest Pain (ED) Referrals: Nonstaff,Physician [Primary Care Provider] - 1-2 days
[2017-04-29 21:18] LABS: Anion Gap 9 mmol/L; Blood Urea Nitrogen 26 mg/dL (9-20); Calcium 9.3 mg/dL (8.4-10.2); Carbon Dioxide 23 mmol/L (22-30); Chloride 108 mmol/L (98-107); Glucose 85 mg/dL (74-99); Non-African American GFR(MDRD) >60 (>60 ml/min/1.73 sqM); Potassium 4.5 mmol/L (3.5-5.1); Sodium 140 mmol/L (137-145)
[2017-04-29 23:57] VITALS: BP 110/77; PULSE 85; TEMP 98.1
== END 2017-04-30 00:10 | disposition home or self-care (01) ==
LOC: EC 19:56
DX: R07.81 Pleurodynia (principal); M79.622 Pain in left upper arm; I25.2 Old myocardial infarction; I10 Essential (primary) hypertension; F17.200 Nicotine dependence, unspecified, uncomplicated; Z79.82 Long term (current) use of aspirin; Z79.899 Other long term (current) drug therapy; Z91.018 Allergy to other foods; Z88.6 Allergy status to analgesic agent; Z88.8 Allergy status to other drugs, medicaments and biological substances; Z95.5 Presence of coronary angioplasty implant and graft
CPT/HCPCS: 36415; 93005; 85379; 80048; 84484; 85025; 99285; 96374; J1885